=== PATIENT | male | born 1955 | race Caucasian/White ===

== ENCOUNTER → 2016-07-16 | Outpatient (CLI) | payer BC ==
--- NOTE | 2016-07-16 13:51 | CONS ---
DATE OF CONSULTATION: 07/16/2016 CONSULTATION/NEW PATIENT EVALUATION: A 60-year-old gentleman who has been evaluated in the Sleep Center for possible obstructive sleep apnea-hypopnea syndrome. SLEEP SCHEDULE: Patient's usual sleep schedule is from 10 p.m. to 6 a.m. FALLING ASLEEP: No problem with falling asleep, no TV in bedroom. DURING SLEEP: Patient sleeps in different positions. He usually on the side. According to his , he snores and has episodes of stopped breathing during sleep. He wakes up from sleep up to 4 times with 2 episodes of nocturia. He has episodes of gasping for air, dry mouth and heartburn. DURING THE DAY/WAKE EVALUATION: In the morning he wakes up tired, worrying about his sleep. [place] Sleepiness Scale is 8. He takes nap at 2 p.m. No history of hypnagogic hallucinations, sleep paralysis or cataplexy. PAST MEDICAL HISTORY: Positive for hyperlipidemia. MEDICATIONS: Simvastatin. PAST SURGICAL HISTORY: None. SOCIAL HISTORY: Negative for smoking and basically negative using alcohol. REVIEW OF SYSTEMS: Awakenings from sleep. Sometimes sleepiness during the day. FAMILY HISTORY: Hyperlipidemia, asthma, snoring, diabetes. During physical exam, a 60-year-old gentleman without distress. BP 128/91, HR 97, RR 16. Height 5, 11. Weight 245. BMI 34.1. Neck 17-1/2 inches in circumference. Temp is 98.1. Oxygen saturation at room air 94%. Oropharynx extremely low position of soft palate. Slight restriction of nasal breathing. ABDOMEN: Obese. EXTREMITIES: No edema. IMPRESSION: 1. Snoring, witnessed episodes of stopped breathing during the sleep, extremely low position of soft palate, multiple awakenings from sleep with nocturia, dry mouth, sleepiness during the day. Patient takes naps, obstructive sleep apnea-hypopnea syndrome. 2. Obesity. 3. Hyperlipidemia. 4. Sleepiness during the day. PLAN: 1. Home sleep apnea test for evaluation of patient's breathing during the sleep. 2. CPAP/BiPAP titration if sleep study confirms obstructive sleep apnea-hypopnea syndrome. 3. Preferable position during sleep on the side. 4. No driving if patient feels any sleepiness. Patient is aware of civil and criminal liability for unsafe driving. 5. I will see patient for followup visit to explain results of the testing and following plan. Sincerely, George Jose MD, PhD, FAASM. Diplomat of [place] [employer], Sleep Medicine Board by [place] [employer] [place] [employer] Supervisor [employer] of [facility] [place]
== END | disposition home or self-care (01) ==
LOC: SLEEP 11:18
PROVIDERS: ATTEND Internal Medicine
DX: G47.33 Obstructive sleep apnea (adult) (pediatric) (principal); E78.5 Hyperlipidemia, unspecified; E66.9 Obesity, unspecified; Z68.34 Body mass index [BMI] 34.0-34.9, adult; Z79.899 Other long term (current) drug therapy
CPT/HCPCS: 99211

== ENCOUNTER → 2016-09-24 | Outpatient (CLI) | payer BC ==
--- NOTE | 2016-09-24 20:29 | PN ---
DATE OF SERVICE: 09/24/2016 This patient is a 61-year-old gentleman who has been followed in the sleep center for treatment of obstructive sleep apnea-hypopnea syndrome. Recently patient had a home sleep apnea test and CPAP titration in the office, and I discussed the results of his sleep studies with the patient in detail. Home sleep study showed severe obstructive sleep apnea-hypopnea syndrome. Titration showed normalization of breathing at the pressure 14 cm of water. At that pressure apnea-hypopnea index was reduced to 1.2. Patient was started on treatment with CPAP. He brought his CPAP unit with him. I checked the CPAP machine. CPAP pressure is 14 cm of water. Usage is 100% of the time for more than 4 hours; average 7.4 hours. Leak is 38 L/minute, but patient sleeps well with the machine and feels better during the day. Apnea-hypopnea index from the machine reading is only 1.3. [place] Sleepiness Scale today is 4. MEDICATIONS: 1. Simvastatin. 2. Aspirin. PHYSICAL EXAMINATION: Patient is in no distress. VITAL SIGNS: BP 100/64, HR 74, RR 16. Weight 252. Temperature 97.6. Oxygen saturation at room air 94%. HEENT: DIEGO, EOMI. Evaluation of oropharynx showed tongue protrudes midline; extremely low position of soft palate. NECK: Supple. No JVD. Thyroid is not palpable. LUNGS: Clear to percussion and to auscultation. Good air exchange. No wheezing or rhonchi. HEART: S1, S2 regular. No murmurs, gallops or rubs. ABDOMEN: Obese. EXTREMITIES: No clubbing or cyanosis. CUSTOMER RELATIONS COORDINATOR: Awake, alert, and oriented x3. Cranial nerves 2 to 7 intact. There is no fasciculation or atrophy noted. No focal deficits observed. IMPRESSION: 1. Extremely severe obstructive sleep apnea-hypopnea syndrome. Apnea-hypopnea index was 59.8 with oxygen desaturation to 70% by results of home sleep test, fully controlled with CPAP at 14 cm of water. Patient has demonstrated 100% compliance with treatment and is benefitting from treatment. 2. Obesity. 3. Hyperlipidemia. 4. Some periodic limb movements have been documented during the sleep study. No problems with leg movements at night. Patient sleeps well. PLAN: 1. Continue treatment with CPAP every night. 2. Losing weight. 3. Sleep hygiene with regular time in bed for at least 8 hours. 4. No driving if feeling any sleepiness. 5. Follow-up visit in 10 months or earlier if patient has any problems. Thank you very much for allowing me to participate in the management your patient. Sincerely, George Jose MD, PhD, FAASM. Diplomat of [place] [employer], Sleep Medicine Board by [place] [employer], [place] [employer]
== END | disposition home or self-care (01) ==
LOC: SLEEP 16:05
PROVIDERS: ATTEND Internal Medicine
DX: G47.33 Obstructive sleep apnea (adult) (pediatric) (principal); E66.9 Obesity, unspecified; E78.5 Hyperlipidemia, unspecified; Z99.89 Dependence on other enabling machines and devices; Z79.82 Long term (current) use of aspirin; Z79.899 Other long term (current) drug therapy

== ENCOUNTER → 2017-10-21 | Outpatient (CLI) | payer BC ==
--- NOTE | 2017-10-21 17:29 | SFUN ---
SLEEP CENTER FOLLOW UP NOTE DATE OF SERVICE: 10/21/2017. HISTORY: A 62-year-old gentleman, has been followed in Sleep Center for treatment of severe obstructive sleep apnea-hypopnea syndrome; apnea-hypopnea index 59.8 with oxygen saturation of 70%. Patient successfully continued to use his CPAP equipment every night for the whole night without any significant problems related to mask pressure or humidification. [place] Sleepiness Scale today is 5. No snoring with the machine. I checked his CPAP unit. Usage is 100% of the time, more than 4 hours every 6.3 hours. Pressure is 14 cm of water. Apnea-hypopnea index only 1.4. Quite significant leak, although 48 L/minute. Patient thinks this is related to sometimes he is moving at night and moves his mask. MEDICATIONS: Aspirin, simvastatin. PHYSICAL EXAM: Patient in no distress. BP 113/68, HR 71, RR 14, height 5 feet 10 inches, weight 229.4, BMI 32.8. Oxygen saturation room air 93%. HEENT: PERRLA, EOMI, evaluation of oropharynx showed tongue protrudes midline. Low position of soft palate. NECK: Supple, no JVD. Thyroid is not palpable. LUNGS: Clear to percussion and to auscultation. Good air exchange. No wheezing or rhonchi. HEART: S1, S2 regular. No murmurs, gallops, or rubs. ABDOMEN: Slightly obese, soft and nontender. Bowel sounds are present. No organomegaly appreciated. EXTREMITIES: No clubbing or cyanosis. SPOOLER: Awake, alert, and oriented X3. Cranial nerves 2 to 7 intact. There is no fasciculation or atrophy. noted. No focal deficits observed. IMPRESSION: 1. Severe obstructive sleep apnea-hypopnea syndrome, on control with CPAP. The patient demonstrated 100% compliance with treatment, benefitting from treatment. 2. Mild obesity. BMI 32.8. Patient lost around 20 pounds since last visit. 3. Hyperlipidemia. 4. History of some periodic limb movements. No problems at the present time. PLAN: 1. Patient will continue to use CPAP equipment every night. 2. Continue losing weight. 3. Sleep hygiene with regular time in bed for at least 8 hours. 4. No driving if feeling sleepiness. 5. Prescription for all necessary CPAP supplies including mask, tube, filters. 6. Followup visit in 1 year or earlier if patient has any problems. Thank you very much for allowing me to participate in the management of your patient. Sincerely, George Jose MD, PhD, FAASM Diplomat of [place] [employer] Special[employer] [place] Board of Internal Medicine Clerical Proofreader of [facility] [place] DEEPAK / EMMY: [id number] /
== END | disposition home or self-care (01) ==
LOC: SLEEP 16:04
PROVIDERS: ATTEND Internal Medicine
DX: G47.33 Obstructive sleep apnea (adult) (pediatric) (principal); E66.9 Obesity, unspecified; E78.5 Hyperlipidemia, unspecified; Z99.89 Dependence on other enabling machines and devices; Z68.32 Body mass index [BMI] 32.0-32.9, adult

== ENCOUNTER → 2018-11-10 | Outpatient (CLI) | payer BC ==
--- NOTE | 2018-11-10 20:07 | PN ---
PROGRESS NOTE DATE OF SERVICE: 11/10/2018 63-year-old gentleman has been followed in Sleep Center for treatment of obstructive sleep apnea-hypopnea syndrome. The patient successfully continues to use his CPAP equipment every night for the whole night but recently developed some leak from the nasal pillow mask . The patient is using a chinstrap to prevent mouth leak. [place] Sleepiness Scale is 6. I checked his CPAP unit. CPAP pressure is 14 cm of water. The patient is using equipment every night and 23 out of 30 nights more than 4 hours with average usage 5.0 hours. Leak is 50 L/minute which is high. Apnea-hypopnea index only 1.8, which is totally normal. Reading for the last year showed sleep 44 L/minute, for the 6 months showed 43 L/minutes. MEDICATIONS: Simvastatin, aspirin. PHYSICAL EXAM: Patient in no distress. BP 101/62, HR 65, RR 14, height 5 feet 10 inches, weight 232.2 pounds. Body Mass index 33.2, temperature 97.1. Oxygen saturation at room air 97%. Oropharynx: Low position of soft palate. Abdomen slightly obese. Neck Supple, no JVD. Thyroid is not palpable. LUNGS Clear to percussion and to auscultation. Good air exchange. No wheezing or rhonchi. HEART S1, S2 regular. No murmurs, gallops, or rubs. ABDOMEN: Slightly obese. Soft and nontender. Bowel sounds are present. No organomegaly appreciated. EXTREMITIES: No clubbing or cyanosis. CREW BOSS Awake, alert, and oriented X3. Cranial nerves 2 to 7 intact. There is no fasciculation or atrophy. noted. No focal deficits observed. IMPRESSION: 1. Obstructive sleep apnea-hypopnea syndrome. Patient demonstrated great compliance with treatment benefitting from treatment. Normal respiration on CPAP but high leak by machine reading. 2. Mild obesity BMI 33.2. 3. Hyperlipidemia. 4. The patient increased his weight around 3 pounds since last visit. 5. History of some periodic limb movements in the in the past. No problem with the leg movements at the present time. PLAN: 1. Patient will continue to use CPAP equipment every night for the whole night. 2. We will consider to change the patient nasal pillow mask from AirFit P10 to Cabrera FX same size large. 3. Losing weight. 4. Sleep hygiene with regular time in bed for 7.5 to 8 hours. 5. No driving if feeling sleepiness. 6. I will maintain all necessary prescriptions for CPAP supplies including nasal pillow, mask, tube, filters. 7. Follow up visit in 1 year or earlier if patient has any problems. Thank you very much for allowing me to participate in the management of your patient. Sincerely, George Jose MD, PhD, FAASM Diplomat of [employer] Board [employer] Specialties [employer] Board of Internal Medicine Heel Room Supervisor of [facility] [place] MMODL / BRYANTN: [id number] /
== END ==
LOC: SLEEP 15:57
PROVIDERS: ATTEND Internal Medicine
DX: G47.33 Obstructive sleep apnea (adult) (pediatric) (principal); E66.9 Obesity, unspecified; E78.5 Hyperlipidemia, unspecified; Z68.33 Body mass index [BMI] 33.0-33.9, adult; Z99.89 Dependence on other enabling machines and devices; Z79.899 Other long term (current) drug therapy; Z79.82 Long term (current) use of aspirin

== ENCOUNTER → 2020-10-17 | Outpatient (CLI) | payer MEDICARE, BC ==
--- NOTE | 2020-10-17 20:56 | SFUN ---
SLEEP CENTER FOLLOW UP NOTE DATE OF SERVICE: 10/17/2020 This 65-year-old gentleman has been followed in Sleep Center for treatment of obstructive sleep apnea-hypopnea syndrome. I did not see the patient for about 2 years. He continues to use his CPAP equipment every night for the whole night. Sometimes he feels that there is a leak from the mask, but at the same time he feels comfortable with sleep. [place] Sleepiness Scale today is 8. I checked the patient's CPAP unit. Pressure is 14 cm of water. Usage is 100% of nights and 28/30 nights for more than 4 hours. Leak is quite high at 41 L/minute, but at the same time, apnea-hypopnea index is totally normal; it is only 2.1. MEDICATIONS: Metformin, simvastatin 40 mg once a day. PHYSICAL EXAMINATION: GENERAL: A gentleman without distress. VITAL SIGNS: BP 139/73, HR 64, RR 18, height 5 feet 11 inches, weight 238.4, temperature 97.6, oxygen saturation at room air 96%. BMI 33.1. HEENT: PERRLA, EOMI. Evaluation of oropharynx showed tongue protrudes midline. Extremely low position of soft palate. Mallampati IV. NECK: Supple. No JVD. Thyroid is not palpable. LUNGS: Clear to percussion and to auscultation. Good air exchange. No wheezing or rhonchi. HEART: S1, S2 regular. No murmurs, gallops or rubs. ABDOMEN: Slightly obese. EXTREMITIES: No clubbing or cyanosis. FILM EDITOR: Awake, alert, and oriented X3. Cranial nerves 2 to 7 intact. There is no fasciculation or atrophy. noted. No focal deficits observed. IMPRESSION: 1. Obstructive sleep apnea-hypopnea syndrome. Patient demonstrated 100% compliance with treatment, benefitting from treatment. Slightly high leak from the mask, but it does not influence the apnea-hypopnea index. 2. Obesity. 3. Hyperlipidemia. 4. History of periodic limb movements. No significant complaints related to any leg movements at night at the present time. PLAN: 1. Patient will continue to use PAP equipment every night for the whole night. 2. Sleep hygiene with regular time in bed for at least 7-1/2 to 8 hours. 3. Precautions related to driving. No driving if feeling sleepiness. 4. I will maintain all necessary prescription for PAP supplies including mask, tube, filters. 5. Watching weight. 6. Follow-up visit in 6 months or earlier if patient has any problems. Thank you very much for allowing me to participate in the management of your patient. Sincerely, George Jose MD, PhD, FAASM Diplomat of [place] [employer] Specialties [place] Board of Internal Medicine Checker In of [facility] [place] MMODL / BRYANTN: [id number] /
== END ==
LOC: SLEEP 15:05
PROVIDERS: ATTEND Internal Medicine
DX: G47.33 Obstructive sleep apnea (adult) (pediatric) (principal); E66.9 Obesity, unspecified; E78.5 Hyperlipidemia, unspecified; Z86.69 Personal history of other diseases of the nervous system and sense organs; Z68.33 Body mass index [BMI] 33.0-33.9, adult

== ENCOUNTER → 2022-09-30 | Outpatient (CLI) | payer MEDICARE ==
--- NOTE | 2022-09-30 16:33 | P.PN ---
Subjective DATE: 09/30/2022 FOLLOW UP VISIT. Patient with obstructive sleep apnea hypopnea syndrome return to sleep center for follow-up visit. Information from previous visit have been reviewed. Patient is using PAP equipment every night for the whole night, getting PAP supplies in time. The patient does not have significant problems with the mask, PAP unit and humidification. [place] sleepiness scale is 7, which is normal. I checked information from PAP unit. PAP unit pressure 14 cm H2O. Usage is 100 % for more then 4 hours, average 5.9 hours per night. Leak is 38 l/m, which is in increased range. Apnea Hypopnea Index is 1.7, which is normal. MEDICATIONS:1. Atorvastatin 80 mg once a day 2. Lisinopril 2.5 mg once a day 3. Farxiga 10 mg once a day 4. Aspirin 81 mg once a day During physical exam: GENERAL: A pleasant patient without any distress. VITAL SIGNS: BP 107/63, HR 71, RR 16, weight 234.2, temperature 98.1, oxygen saturation at room air 95 % . HEENT: PERRLA, EOMI.low position of soft palate, Mallapati 4 . NECK: Supple. No JVD. LUNGS: Clear to percussion and to auscultation. Good air exchange. No wheezing or rhonchi. HEART: S1, S2 regular. ABDOMEN: Soft and nontender.[] EXTREMITIES: No clubbing or cyanosis. SINGLE STROKE PREFORMER: Awake, alert, and oriented x3. No focal deficit. Impressions: 1. Obstructive sleep apnea-hypopnea syndrome. Patient demonstrated great compliance with treatment, benefiting from treatment. 2. Mild obesity, BMI 33.1. 3. Diabetes mellitus. 4. History of periodic limb movements, no complaints. 5. Hyperlipidemia. Plan: 1. Continue using PAP equipment every night for the whole night. 2. To change air filter at least 1-2 times per month. 3. PAP unit should stay lower then position of the head. 4. Advised patient to remove all remaining water from humidifier canister daily and make it dry after each usage. Refill canister with fresh distilled water before each usage. 5. Sleep hygiene with regular time in bed for at least 8 hours. 6. Precautions related to driving. No driving if feel any sleepiness. 7. I will maintain prescription for PAP supplies including mask, tube, filters. 8. Watching and losing weight. 9. Follow up visit in 6 months or earlier if patient has any problems. Thank you very much for allowing me to participate in the management of your patient. George Jose MD, PhD, FAASM. Diplomat of [place] Board [employer] Sleep Medicine, Sleep Medicine Board by [place] Board of Internal Medicine Vegetable Grader of [facility] [place]
== END | disposition home or self-care (01) ==
LOC: SLEEP 15:04
PROVIDERS: ATTEND Internal Medicine
DX: G47.33 Obstructive sleep apnea (adult) (pediatric) (principal); E11.9 Type 2 diabetes mellitus without complications; E66.9 Obesity, unspecified; Z68.33 Body mass index [BMI] 33.0-33.9, adult; E78.5 Hyperlipidemia, unspecified; Z99.89 Dependence on other enabling machines and devices
CPT/HCPCS: 99212

== ENCOUNTER → 2023-09-23 | Outpatient (CLI) | payer MEDICARE ==
--- NOTE | 2023-09-23 15:50 | P.PN ---
Subjective DATE: 09/23/2023 FOLLOW UP VISIT. Patient with obstructive sleep apnea hypopnea syndrome return to sleep center for follow-up visit. Information from previous visit have been reviewed. Patient is using PAP equipment every night for the whole night, getting PAP supplies in time. The patient does not have significant problems with the mask, PAP unit and humidification. [place] sleepiness scale is 6, which is normal. I checked information from PAP unit. PAP unit pressure 14 cm H2O. Usage is 100% for more then 4 hours, average 6.5 hours per night. Leak is slightly increased to 32 l/m. Apnea Hypopnea Index is 1.6, which is normal. MEDICATIONS:1. Atorvastatin 80 mg once a day 2. Ezetimibe 10 mg once a day 3. Lisinopril 2.5 mg once a day 4. Farxciga 10 mg once a day 5. Aspirin 81 mg once a day During physical exam: GENERAL: A pleasant patient without any distress. VITAL SIGNS: Please see below, weight 241.4 pounds. HEENT: PERRLA, EOMI.low position of soft palate, Mallapati 4 . NECK: Supple. No JVD. LUNGS: Clear to percussion and to auscultation. Good air exchange. No wheezing or rhonchi. HEART: S1, S2 regular. ABDOMEN: Soft and nontender. Slightly obese EXTREMITIES: No clubbing or cyanosis. TAX INTERN: Awake, alert, and oriented x3. No focal deficit. Impressions: 1. Obstructive sleep apnea-hypopnea syndrome. Patient demonstrated great compliance with treatment, benefiting from treatment. 2. Obesity, patient increased weight on 7 pounds comparing with the previous visit, BMI 34.0. 3. Diabetes mellitus. 4. Hyperlipidemia. 5. History of periodic limb movements, no complaints. Plan: 1. Continue using PAP equipment every night for the whole night. 2. To change air filter at least 1-2 times per month. 3. PAP unit should stay lower then position of the head. 4. Advised patient to remove all remaining water from humidifier canister daily and make it dry after each usage. Refill canister with fresh distilled water before each usage. 5. Sleep hygiene with regular time in bed for at least 8 hours. 6. Precautions related to driving. No driving if feel any sleepiness. 7. I will maintain prescription for PAP supplies including mask, tube, filters. 8. Follow up visit in 6 months or earlier if patient has any problems. 9. Watching and losing weight. Thank you very much for allowing me to participate in the management of your patient. George Jose MD, PhD, FAASM. Diplomat of [place] Board of Sleep Medicine, Sleep Medicine Board by [employer] Board of Internal Medicine [place] Tribunal Member of [facility] [place] Objective - Vital Signs Vital signs: Vital Signs Temp 97.9 F 09/23/23 15:37 Pulse 66 09/23/23 15:37 Resp 16 09/23/23 15:37 BP 105/68 09/23/23 15:37 Pulse Ox 95 09/23/23 15:37 FiO2 Intake & Output 09/22/23 09/23/23 09/23/23 18:59 06:59 18:59 Weight 109.316 kg
[2023-09-23 16:00] VITALS: BP 105/68; PULSE 66; RESP 16; TEMP 97.9
== END ==
LOC: 3 N SLEEP 14:52
PROVIDERS: ATTEND Internal Medicine
DX: G47.33 Obstructive sleep apnea (adult) (pediatric) (principal); E66.9 Obesity, unspecified; E11.9 Type 2 diabetes mellitus without complications; E78.5 Hyperlipidemia, unspecified; Z99.89 Dependence on other enabling machines and devices; Z86.69 Personal history of other diseases of the nervous system and sense organs; Z68.34 Body mass index [BMI] 34.0-34.9, adult
CPT/HCPCS: 99212

== ENCOUNTER → 2024-06-01 | Outpatient (CLI) | payer MEDICARE ==
[2024-06-01 16:53] VITALS: BP 130/76; PULSE 63; RESP 16; TEMP 97.4
--- NOTE | 2024-06-01 17:17 | P.PROGSL ---
Subjective DATE: 06/01/2024 FOLLOW UP VISIT. Patient with obstructive sleep apnea hypopnea syndrome return to sleep center for follow-up visit. Information from previous visit have been reviewed. Patient is using PAP equipment every night for the whole night, getting PAP supplies in time. The patient does not have significant problems with the mask, PAP unit and humidification. [place] sleepiness scale is 6, which is normal. I checked information from PAP unit. PAP unit pressure 14 cm H2O. Usage is 100% for more then 4 hours, average 6.5 hours per night. Leak is 22 l/m, which is in acceptable range. Apnea Hypopnea Index is 2.0, which is normal. MEDICATIONS have been reviewed, please see below. During physical exam: GENERAL: A pleasant patient without any distress. VITAL SIGNS: Please see below, weight is 242.8 lbs. HEENT: PERRLA, EOMI.low position of soft palate, Mallapati 4 . NECK: Supple. No JVD. LUNGS: Clear to percussion and to auscultation. Good air exchange. No wheezing or rhonchi. HEART: S1, S2 regular. ABDOMEN: Soft and nontender.[] EXTREMITIES: No clubbing or cyanosis. MANAGER OF SOFTWARE DEVELOPMENT: Awake, alert, and oriented x3. No focal deficit. Impressions: 1. Obstructive sleep apnea-hypopnea syndrome. Patient demonstrated great compliance with treatment, benefiting from treatment. 2. Obesity, BMI 34.8. 3. Diabetes mellitus, recent A1c according to patient 7.0. 4. History of periodic limb movements, no complaints at the present time. 5. Hyperlipidemia. Plan: 1. Continue using PAP equipment every night for the whole night. 2. Sleep hygiene with regular time in bed for at least 7.5-8 hours 3. PAP unit should stay lower then position of the head. 4. Advised patient to remove all remaining water from humidifier canister daily and make it dry after each usage. Refill canister with fresh distilled water before each usage. 5. Watching and losing weight. 6. Precautions related to driving. No driving if feel any sleepiness. 7. I will maintain prescription for PAP supplies including mask, tube, filters. 8. Follow up visit in 8 months or earlier if patient has any problems. Thank you very much for allowing me to participate in the management of your patient. George Jose MD, PhD, FAASM. Diplomat of [place] [employer] Sleep Medicine, Sleep Medicine Board by [place] [employer] of Internal Medicine Pie Filling Mixer of [facility] [place] Objective - Vital Signs Vital Signs: Vital Signs Temp 97.4 F L 06/01/24 16:50 Pulse 63 06/01/24 16:50 Resp 16 06/01/24 16:50 BP 130/76 06/01/24 16:50 Pulse Ox 95 06/01/24 16:50 FiO2 Intake & Output 05/31/24 06/01/24 06/01/24 18:59 06:59 18:59 Weight 109.996 kg Home Medications: Home Medications Medication Instructions Recorded Confirmed Type Aspirin [Adult Low Dose Aspirin EC] 81 mg PO DAILY 03/04/17 06/01/24 History Simvastatin 40 mg PO DAILY 03/04/17 03/04/17 History Atorvastatin [Lipitor] 80 mg PO DAILY 09/23/23 06/01/24 History Dapagliflozin Propanediol [Farxiga] 10 mg PO DAILY 09/23/23 06/01/24 History Ezetimibe [Zetia] 10 mg PO DAILY 09/23/23 06/01/24 History lisinopriL [Zestril] 2.5 mg PO DAILY 09/23/23 06/01/24 History
== END ==
LOC: 3 N SLEEP 15:44
PROVIDERS: ATTEND Internal Medicine
DX: G47.33 Obstructive sleep apnea (adult) (pediatric) (principal); E66.9 Obesity, unspecified; E11.9 Type 2 diabetes mellitus without complications; E78.5 Hyperlipidemia, unspecified; Z68.34 Body mass index [BMI] 34.0-34.9, adult; Z86.718 Personal history of other venous thrombosis and embolism; Z99.89 Dependence on other enabling machines and devices
CPT/HCPCS: 99212

== ENCOUNTER → 2024-11-21 | Outpatient (CLI) | payer MEDICARE ==
[2024-11-21 15:02] LABS: Basophils # (A) 0.05 X 10*3/uL (0.00-0.10); Basophils % (A) 0.9 %; Eosinophils # (A) 0.17 X 10*3/uL (0.04-0.35); Eosinophils % (A) 3.0 %; HCT 44.2 % (39.6-50.0); HGB 14.2 g/dL (13.0-17.0); Immature Grans, Automated 0.20 %; Lymphocytes # (A) 1.66 X 10*3/uL (0.90-5.00); Lymphocytes % (A) 29.0 %; MCH 29.8 pg (27.0-32.0); MCHC 32.1 g/dL (32.0-37.0); MCV 92.7 FL (80.0-97.0); Monocytes # (A) 0.67 X 10*3/uL (0.20-1.00); Monocytes % (A) 11.7 %; NRBC Per 100 WBC 0 X 10*3/uL (0.00-0.01); Neutrophils # (A) 3.17 X 10*3/uL (1.80-7.70); Neutrophils % (A) 55.2 %; Platelet Count 276 X 10*3/uL (140-440); RBC 4.77 X 10*6/uL (4.40-5.60); RDW 12.5 % (11.5-14.5); WBC 5.73 X 10*3/uL (4.50-10.00)
[2024-11-21 15:14] LABS: Anion Gap 14.90 mmol/L (4.00-12.00); BUN/Creat Ratio 21.93 Ratio (12.00-20.00); Blood Urea Nitrogen 32.9 mg/dL (9.0-27.0); Carbon Dioxide 22.1 mmol/L (21.6-31.8); Chloride 108 mmol/L (96-109); Glucose 131 mg/dL (70-110); Potassium 4.2 mmol/L (3.5-5.5); Sodium 145 mmol/L (135-145)
[2024-11-21 15:15] LABS: Calcium 9.3 mg/dL (8.7-10.3)
[2024-11-21 15:21] LABS: Bilirubin,Urine Negative (Negative); Blood,Urine Negative (Negative); Color,Urine Yellow (Yellow); Ketones,Urine Negative (Negative); Nitrite,Urine Negative (Negative); PH, Urine 5.5; Specific Gravity,Urine 1.011 (1.001-1.030); Urobilinogen,Urine 0.2 E.U./DL
== END | disposition home or self-care (01) ==
LOC: LABPAT 07:54
PROVIDERS: ATTEND Urology
DX: Z01.812 Encounter for preprocedural laboratory examination (principal); N40.1 Benign prostatic hyperplasia with lower urinary tract symptoms
CPT/HCPCS: 80048; 81003; 85025; 86850; 86900; 86901; 87086

== ENCOUNTER 2024-11-23 09:57 | Day surgery (SDC) | payer MEDICARE ==
[2024-11-20 10:15] VITALS: BMI 32.3
--- NOTE | 2024-11-21 07:45 | P.HPIHPCON ---
History of Present Illness H&P Date: 11/21/24 Chief Complaint: Urinary retention, BPH This is a 69-year-old male with history of urinary retention, despite medical therapy. On CT his prostate measured greater than 100 g, on cystoscopy the prostate was occlusive. Discussed with him the option of a robotic simple prostatectomy versus HoLEP. Risk and benefit of each approach were discussed. He agreed to proceed with a robotic simple prostatectomy. He is aware of the risk which include but not limited to bleeding, infection, urinary incontinence, retrograde ejaculation. Discussed the risk of injury to nearby organs. Discussed with him the potential of persistent retention even with a robotic simple. He understood all risk and agreed to proceed Consent for Procedure: I have explained the operation/procedure to the patient, including the risks, benefits, side effects, alternative therapies (including not receiving the proposed treatment or service), the likelihood of the patient achieving his/her goals, and potential recuperation problems for the procedure/sedation/analgesia, as well as any blood products, if indicated. I also explained to the patient the risks, benefits and side effects of the alternatives, as well as the risks related to not receiving the proposed procedure, care, treatment, or services. Past Medical History Past Medical History: Diabetes Mellitus, Hyperlipidemia, Sleep Apnea/CPAP/BIPAP Additional Past Medical History / Comment(s): Type II NIDDM. Uses CPAP History of Any Multi-Drug Resistant Organisms: None Reported Past Surgical History: Unable to Obtain Additional Past Surgical History / Comment(s): Colonoscopy Past Anesthesia/Blood Transfusion Reactions: No Reported Reaction Additional Past Anesthesia/Blood Transfusion Reaction / Comment(s): No hx of blood transfusion to date. Smoking Status: Never smoker - Past Family History Father Family Medical History: No Reported History Medications and Allergies Home Medications Medication Instructions Recorded Confirmed Type Aspirin [Adult Low Dose Aspirin EC] 81 mg PO DAILY 03/04/17 11/20/24 History Simvastatin 40 mg PO DAILY 03/04/17 11/20/24 History Atorvastatin [Lipitor] 80 mg PO DAILY 09/23/23 11/20/24 History Dapagliflozin Propanediol [Farxiga] 10 mg PO QAM 09/23/23 11/20/24 History Ezetimibe [Zetia] 10 mg PO DAILY 09/23/23 11/20/24 History lisinopriL [Zestril] 2.5 mg PO QAM 09/23/23 11/20/24 History Allergies Allergy/AdvReac Type Severity Reaction Status Date / Time No Known Allergies Allergy Verified 11/20/24 10:01 Surgical - Exam - General no distress, no pain - Eyes normal ocular movement, no pale - ENT normal nares, normal mucosa - Respiratory normal expansion, normal respiratory effort - Abdomen Abdomen: soft, non tender - Psychiatric oriented to time, oriented to person, oriented to place Assessment and Plan Assessment: OR for robotic simple prostatectomy
[~2024-11-23 09:57] MED LIST: HYDROmorphone 0.5 MG/0.5 ML SYRINGE IVP PRN; LIDOCAINE 1% (10MG/ML) FOR IV START INTRADERMA PRN
[2024-11-23] MEDS: LACTATED RINGERS 1,000 ML IV SCH (10:50)
[2024-11-23 10:52] LABS: Glucose,Whole Blood 125 mg/dL (70-110)
[2024-11-23] MEDS: DEXAMETHASONE SOD PHOSPHATE 4 MG/ML 1 ML VIAL IV ONE (11:06)
[2024-11-23] MEDS: ONDANSETRON 4 MG/2 ML VIAL IVP ONE (11:07)
[2024-11-23] MEDS: IV FLUID CONTINUATION 1,000 ML IV ONE ×2 (11:15)
[2024-11-23] MEDS: fentaNYL (PF) 50 MCG/ML 2 ML AMP IVP PRN (11:24)
[2024-11-23] MEDS: MIDAZOLAM 2 MG/2 ML VIAL IV ONE (11:24)
[2024-11-23] MEDS: HEPARIN SODIUM,PORCINE 5,000 UNIT/ML 1 ML VIAL SQ PRN (11:34)
[2024-11-23] MEDS ORDERED: fentaNYL (PF) 50 MCG/ML 2 ML AMP ONE (11:55)
[2024-11-23] MEDS ORDERED: ACETAMINOPHEN IV (For NPO) 1,000 MG/100 ML VIAL ONE (11:55)
[2024-11-23] MEDS ORDERED: PROPOFOL 10 MG/ML 20 ML VIAL IV ONE (11:55)
[2024-11-23] MEDS ORDERED: GLYCOPYRROLATE 0.2 MG/ML 2 ML VIAL ONE (11:55)
[2024-11-23] MEDS ORDERED: SODIUM CHLORIDE 0.9% (PF) 10 ML VIAL ONE (11:55)
[2024-11-23] MEDS ORDERED: ROCURONIUM 10 MG/ML (5 ML VIAL) IV ONE (11:55)
[2024-11-23] MEDS ORDERED: HYDROmorphone (PF) 1 MG/ML ONE (11:55)
[2024-11-23] MEDS ORDERED: DEXAMETHASONE SOD PHOSPHATE 4 MG/ML 1 ML VIAL ONE (11:55)
[2024-11-23] MEDS ORDERED: SUCCINYLCHOLINE CHLORIDE 200 MG/10 ML VIAL IV ONE (11:55)
[2024-11-23] MEDS ORDERED: ROPIVACAINE 5 MG/ML 30 ML VIAL ONE (11:55)
[2024-11-23] MEDS ORDERED: NEOSTIGMINE 1 MG/ML 10 ML VIAL ONE (11:55)
[2024-11-23] MEDS: BUPIVACAINE (PF) 0.25% 30 ML VIAL SQ ONE ×2 (12:29→14:46)
--- NOTE | 2024-11-23 13:07 | P.ANPRN ---
Procedure Note - Anesthesia - Nerve Block Performed Bilateral Erector Spinae Single Time Out Performed: Yes (1124) Date of Procedure: 11/23/24 Procedure Start Time: : Procedure Stop Time: :32 Location of Patient: PreOp Indication: Acute Post-Operative Pain, Requested by Surgeon Specifically requested for management of pain by : Oren Jenkins Sedation Type: Sedate with meaningful contact maintained Preparation: Sterile Prep Position: Sitting Catheter: None Needle Types: Pajunk Needle Gauge: 21 Ultrasound used to visualize needle placement: Yes Ultrasound used to observe medication spread: Yes Injectate: 0.5% Ropivacaine (see comment for volume) (15cc+10cc nacl pf+decadron 4mg each side) Blood Aspirated: No Pain Paresthesia on Injection Noted: No Resistance on Injection: Normal Image Stored and Saved: Yes Events: Uneventful and Well Tolerated
[2024-11-23] MEDS ORDERED: ONDANSETRON 4 MG/2 ML VIAL IVP PRN (14:59)
[2024-11-23] MEDS ORDERED: HYDROmorphone 1 MG/ML 1 ML SYRINGE IVP PRN (14:59)
[2024-11-23] MEDS ORDERED: HYDROcodone/APAP 5-325MG 1 EACH TAB PO PRN (15:02)
--- NOTE | 2024-11-23 15:06 | P.OP ---
Date of Procedure: 11/23/24 Preoperative Diagnosis: BPH Postoperative Diagnosis: Same Procedure(s) Performed: Robotic simple prostatectomy Implants: None Anesthesia: ISIDROA Surgeon: Oren Jenkins Estimated Blood Loss (ml): 75 Pathology: other (Prostate adenoma) Condition: stable Disposition: PACU Indications for Procedure: This is a 69-year-old male with history of urinary retention, despite medical therapy. On CT his prostate measured greater than 100 g, on cystoscopy the prostate was occlusive. Discussed with him the option of a robotic simple prostatectomy versus HoLEP. Risk and benefit of each approach were discussed. He agreed to proceed with a robotic simple prostatectomy. He is aware of the risk which include but not limited to bleeding, infection, urinary incontinence, retrograde ejaculation. Discussed the risk of injury to nearby organs. Discussed with him the potential of persistent retention even with a robotic simple. He understood all risk and agreed to proceed Description of Procedure: After preoperative antibiotics were started, the patient was taken to the operating room. Anesthesia was induced and the patient was placed in a supine position with adequate padding of the pressure points, shoulders, back, legs and arms. He was then prepped and draped in the standard fashion. A critical pause was performed using two patient identifiers. A 16F kenney catheter was placed to gravity drainage. A pneumoperitoneum was obtained using a Veress needle, after pneumoperitoneum was obtained a 8 mm camera port was placed. Under direct vision a 8mm robotic ports was placed lateral to each rectus slightly below the camera port. The left iliac fossa 8mm port was placed. The right sales operations assistant right iliac fossa 12mm port and right paramedian 5mm portwere placed. After the patient was placed in the trendelenberg position, the robot was then docked to the 8mm robotic ports and then each robotic arm and tower was checked in relation to the patient's legs and hands to avoid inadvertent compression. The peritoneal cavity was inspected. Adhesions were taken down along the left lower quadrant An inverted U-shaped incision began laterally to the left medial umbilical ligament and extended high across the midline to the right umbilical ligament. The limbs of the "U" extended to the level of the vasa on both sides. We next developed the preperitoneal space and the space of Retzius. Cautery was used to dissected the bladder away from the prostate, the incision was made in close proximity to the prostate, and incision was extended laterally and at this point the plane between the adenoma and the surgical capsule is identified. Both ureteral orifices were identified and neither was injured during the dissection . Of note there was intravesical extension of the prostate, with enlarged median lobe. The adenoma was dissected off of the capsule by combination of blunt dissection and minimum cautery. dissection was initially started along the anterior surface and posterior surface of adenoma, and this was carried laterally. The dissection was carried to the apex, at this point the urethral-prostatic junction was visualized and the prostate was transected at the junction. Prostate adenoma was placed in an endocatch bag . A 9and 9 inch 3-0 V-Lock suture was used to anastomose the urethra and bladder, starting at the 6:00 posterior position. Mucosa was secured in every stitch, to ensure a mucosa to mucosa anastomosis. The stitch was regularly cinched and the anastomosis tightened. . The 20 Fr Kenney catheter was advanced, the bladder filled, and the anastomosis was tested. Anastomsis was watertight at 150 mL. balloon was inflated to 10 mL The robot was undocked. specimen was extracted from the supraumbilical incision. The periumbilical fascia was closed with 1-0-PDS suture in figure of 8 fashion. All ports were closed with a subcuticular 4-0 monocryl and Dermabond. Sponge, instrument, and needle counts were correct at the end of the case x2. The patient tolerated the surgery well and without complication. He awoke without difficulty and was taken to the recovery room in stable condition
[2024-11-23 16:57] LABS: Glucose,Whole Blood 142 mg/dL (70-110)
[2024-11-23] MEDS: droPERidol 2.5 MG/ML VIAL IVP ONE (18:17)
[2024-11-23] MEDS: KETOROLAC 15 MG/ML 1 ML VIAL IVP SCH (19:00)
[2024-11-23 20:09] LABS: Glucose,Whole Blood 272 mg/dL (70-110)
[2024-11-23] MEDS: SODIUM CHLORIDE 0.9% 1,000 ML IV SCH (20:16)
[2024-11-23] MEDS: HEPARIN SODIUM,PORCINE 5,000 UNIT/ML 1 ML VIAL SQ SCH (23:43)
[2024-11-24 06:31] LABS: Glucose,Whole Blood 182 mg/dL (70-110)
[2024-11-24] MEDS: ATORVASTATIN 80 MG TAB PO SCH (08:46)
[2024-11-24] MEDS: DAPAGLIFLOZIN PROPANEDIOL 10 MG TABLET PO SCH (08:46)
[2024-11-24] MEDS: EZETIMIBE 10 MG TAB PO SCH (08:47)
[2024-11-24] MEDS ORDERED: NON FORMULARY DRUG (Simvastatin [Simvastatin] 40 MG Tablet) PO SCH (09:00)
[2024-11-24 09:09] VITALS: BP 105/61; RESP 18; TEMP 98.4
[2024-11-24 09:10] VITALS: PULSE 68
[2024-11-24 12:00] LABS: Glucose,Whole Blood 168 mg/dL (70-110)
--- NOTE | 2024-11-24 13:02 | P.DS ---
Providers Attending physician: Oren Jenkins MD Primary care physician: Mode Cheney [place] Hospital Course: This is a 69-year-old male with history of BPH. Underwent a robotic simple prostatectomy on November 23. Please see op note in November 23 for surgery details. Patient was admitted to the hospital postoperatively. He was discharged home on postop day #1, at time of discharge he was tolerating a diet, ambulating, pain was controlled Plan - Discharge Summary Discharge Rx Participant: No New Discharge Prescriptions: New Cephalexin [Keflex] 500 mg PO Q8HR #15 cap Ketorolac [Toradol] 10 mg PO Q6HR PRN #15 tab PRN Reason: Pain No Action Simvastatin 40 mg PO DAILY Aspirin [Adult Low Dose Aspirin EC] 81 mg PO DAILY lisinopriL [Zestril] 2.5 mg PO QAM Ezetimibe [Zetia] 10 mg PO DAILY Atorvastatin [Lipitor] 80 mg PO DAILY Dapagliflozin Propanediol [Farxiga] 10 mg PO QAM Discharge Medication List Aspirin [Adult Low Dose Aspirin EC] 81 mg PO DAILY 03/04/17 [History] Simvastatin 40 mg PO DAILY 03/04/17 [History] Atorvastatin [Lipitor] 80 mg PO DAILY 09/23/23 [History] Dapagliflozin Propanediol [Farxiga] 10 mg PO QAM 09/23/23 [History] Ezetimibe [Zetia] 10 mg PO DAILY 09/23/23 [History] lisinopriL [Zestril] 2.5 mg PO QAM 09/23/23 [History] Cephalexin [Keflex] 500 mg PO Q8HR #15 cap 11/23/24 [Rx] Ketorolac [Toradol] 10 mg PO Q6HR PRN #15 tab 11/23/24 [Rx]
== END 2024-11-24 13:38 | disposition home or self-care (01) ==
LOC: OR 09:57 → 4SSUR 15:43 → OR 11-24 13:38
PROVIDERS: ATTEND Urology
DX: N40.1 Benign prostatic hyperplasia with lower urinary tract symptoms (principal); R33.8 Other retention of urine; G89.18 Other acute postprocedural pain; G47.30 Sleep apnea, unspecified; E78.5 Hyperlipidemia, unspecified; E11.9 Type 2 diabetes mellitus without complications; Z79.82 Long term (current) use of aspirin; Z79.84 Long term (current) use of oral hypoglycemic drugs; Z79.899 Other long term (current) drug therapy
CPT/HCPCS: 55867; S2900; 64468

== ENCOUNTER 2024-12-03 11:25 | Inpatient (IN) | payer MEDICARE ==
--- NOTE | 2024-12-03 12:36 | ED ---
Fever HPI - General Chief Complaint: Fever Stated Complaint: chills Time Seen by Provider: 12/03/24 12:30 Source: patient, RN notes reviewed Mode of arrival: wheelchair Limitations: no limitations - History of Present Illness Initial Comments: 69-year-old male presenting for fever x 4 hours. States he had prostate surgery with Dr. Jenkins last week, has indwelling Barrios catheter. States he started Keflex this morning as he has a follow-up appointment with Dr. Jenkins tomorrow to take out Barrios catheter. States about 1.5 hours after taking the antibiotic he began to experience fever. States he has also had a mild cough for about a week, otherwise denies nasal congestion, sore throat, chest pain, abdominal pain, pain at the incision sites. Denies rectal pain. - Related Data Home Medications Medication Instructions Recorded Confirmed Aspirin [Adult Low Dose Aspirin EC] 81 mg PO DAILY 03/04/17 11/23/24 Simvastatin 40 mg PO DAILY 03/04/17 11/23/24 Atorvastatin [Lipitor] 80 mg PO DAILY 09/23/23 11/23/24 Dapagliflozin Propanediol [Farxiga] 10 mg PO QAM 09/23/23 11/23/24 Ezetimibe [Zetia] 10 mg PO DAILY 09/23/23 11/23/24 lisinopriL [Zestril] 2.5 mg PO QAM 09/23/23 11/23/24 Previous Rx's Medication Instructions Recorded Cephalexin [Keflex] 500 mg PO Q8HR #15 cap 11/23/24 Ketorolac [Toradol] 10 mg PO Q6HR PRN #15 tab 11/23/24 Allergies Allergy/AdvReac Type Severity Reaction Status Date / Time No Known Allergies Allergy Verified 11/23/24 10:24 Review of Systems ROS Statement: Those systems with pertinent positive or pertinent negative responses have been documented in the HPI. ROS Other: All systems not noted in ROS Statement are negative. Past Medical History Past Medical History: Diabetes Mellitus, Hyperlipidemia, Sleep Apnea/CPAP/BIPAP Additional Past Medical History / Comment(s): Type II NIDDM. Uses CPAP History of Any Multi-Drug Resistant Organisms: None Reported Past Surgical History: Prostate Surgery Additional Past Surgical History / Comment(s): Colonoscopy Past Anesthesia/Blood Transfusion Reactions: No Reported Reaction Additional Past Anesthesia/Blood Transfusion Reaction / Comment(s): No hx of blood transfusion to date. Past Psychological History: No Psychological Hx Reported Smoking Status: Never smoker Past Alcohol Use History: None Reported Past Drug Use History: None Reported - Past Family History Father Family Medical History: No Reported History General Exam Limitations: no limitations General appearance: alert, in no apparent distress Head exam: Present: atraumatic, normocephalic, normal inspection Eye exam: Present: normal appearance, PERRL, EOMI. Absent: scleral icterus, conjunctival injection, periorbital swelling ENT exam: Present: normal exam, mucous membranes moist Neck exam: Present: normal inspection. Absent: tenderness, meningismus, lymphadenopathy Respiratory exam: Present: normal lung sounds bilaterally. Absent: respiratory distress, wheezes, rales, rhonchi, stridor Cardiovascular Exam: Present: regular rate, normal rhythm, normal heart sounds. Absent: systolic murmur, diastolic murmur, rubs, gallop, clicks GI/Abdominal exam: Present: soft, normal bowel sounds, other (Multiple well- healing incision sites to anterior abdomen. No surrounding erythema or drainage). Absent: distended, tenderness, guarding, rebound, rigid Back exam: Absent: CVA tenderness (R), CVA tenderness (L) Neurological exam: Present: alert, oriented X3 Psychiatric exam: Present: normal affect, normal mood Skin exam: Present: warm, dry, intact, normal color. Absent: rash Course Vital Signs 12/03/24 12/03/24 12/03/24 11:38 14:41 15:08 Temperature 102.9 F H 98.5 F 100.1 F H Pulse Rate 113 H 96 93 Respiratory 18 18 20 Rate Blood Pressure 125/67 111/62 106/58 O2 Sat by Pulse 94 L 95 95 Oximetry Medical Decision Making - Medical Decision Making Was pt. sent in by a medical professional or institution (, PA, CHOCOLATE PACKER, urgent care, hospital, or [facility]...) When possible be specific @ -No Did you speak to anyone other than the patient for history (EMS, parent, family, police, friend...)? What history was obtained from this source @ -No Did you review nursing and triage notes (agree or disagree)? Why? @ -I reviewed and agree with nursing and triage notes Were old charts reviewed (outside hosp., previous admission, EMS record, old EKG, old radiological studies, urgent care reports/EKG's, [facility] records)? Report findings @ -No old charts were reviewed Differential Diagnosis (chest pain, altered mental status, abdominal pain women, abdominal pain men, vaginal bleeding, weakness, fever, dyspnea, syncope, headache, dizziness, GI bleed, back pain, seizure, CVA, palpatations, mental health, musculoskeletal)? @ -Differential Fever: Pneumonia, viral URI, endocarditis, myocarditis, pericarditis, otitis, sinusitis, peritonsillar Abscess, retropharyngeal Abscess, epiglottitis, p eritonitis, appendicitis, Britney cystitis, diverticulitis, hepatitis, colitis, UTI, PID, TOA, pyelonephritis, prostatitis, epididymitis, meningitis, encephalitis, pulmonary embolism, CVA, thyroid storm, pancreatitis, adrenal crisis, cavernous sinus thrombosis, this is not meant to be an all-inclusive list. EKG interpreted by me (3pts min.). @ -As above X-rays interpreted by me (1pt min.). @ -Chest x-ray reveals no acute cardiopulmonary process CT interpreted by me (1pt min.). @ -None done U/S interpreted by me (1pt. min.). @ -None done What testing was considered but not performed or refused? (CT, X-rays, U/S, labs)? Why? @ -None What meds were considered but not given or refused? Why? @ -None Did you discuss the management of the patient with other professionals (professionals i.e. , PA, CHOCOLATE PACKER, lab, RT, psych nurse, social sciences lecturer, knifeman, teacher, loans officer, case checker)? Give summary @ -I spoke with Dr. Wilkinson who accepts admission for septic UTI Was smoking cessation discussed for >3mins.? @ -No Was critical care preformed (if so, how long)? @ -Yes, 45 minutes Were there social determinants of health that impacted care today? How? (Homelessness, low income, unemployed, alcoholism, drug addiction, transportation, low edu. Level, literacy, decrease access to med. care, care home, rehab)? @ -No Was there de-escalation of care discussed even if they declined (Discuss DNR or withdrawal of care, Hospice)? DNR status @ -No What co-morbidities impacted this encounter? (DM, HTN, Smoking, COPD, CAD, Cancer, CVA, ARF, Chemo, Hep., AIDS, mental health diagnosis, sleep apnea, morbi d obesity)? @ -None Was patient admitted / discharged? Hospital course, mention meds given and route , prescriptions, significant lab abnormalities, going to OR and other pertinent info. @ -Admitted. 69-year-old male presenting for fever x 4 hours. Patient had TURP with Dr. Jenkins last week. Patient is febrile at 102.9 F, tachycardic at 113 bpm, patient is normotensive. Patient was provided with appropriate IV fluid bolus per sepsis protocol, given Tylenol and ibuprofen for fever, and blood cultures were taken then dose of IV antibiotics was given. Lab work remarkable for leukocytosis of 22 with left shift. Lactic acid normal at 1.2. Urinalysis remarkable for 96 white blood cells and greater than 182 red blood cells, urine culture sent. I spoke with Dr. Wilkinson who accepts admission for septic UTI with medicine consult. Patient stable at time of admission. Case was discussed wit h my ED attending Dr. Garcia. Undiagnosed new problem with uncertain prognosis? @ -No Drug Therapy requiring intensive monitoring for toxicity (Heparin, Nitro, Insulin, Cardizem)? @ -No Were any procedures done? @ -No Diagnosis/symptom? @ -Sepsis, urinary tract infection Acute, or Chronic, or Acute on Chronic? @ -Acute Uncomplicated (without systemic symptoms) or Complicated (systemic symptoms)? @ -Complicated Side effects of treatment? @ -No Exacerbation, Progression, or Severe Exacerbation? @ -No Poses a threat to life or bodily function? How? (Chest pain, [place], [place], pneumonia, PE, COPD, DKA, ARF, appy, cholecystitis, CVA, Diverticulitis, Homicidal, Suicidal, threat to staff... and all critical care pts) @ -Yes, sepsis - Lab Data Result diagrams: 12/03/24 12:40 12/03/24 12:40 Lab Results 12/03/24 12/03/24 12/03/24 Range/Units 12:40 12:40 12:40 WBC 21.90 H (4.50-10.00) 10*3/uL RBC 4.91 (4.40-5.60) 10*6/uL Hgb 14.9 (13.0-17.0) g/dL Hct 43.8 (39.6-50.0) % MCV 89.2 (80.0-97.0) fL MCH 30.3 (27.0-32.0) pg MCHC 34.0 (32.0-37.0) g/dL Plt Count 316 (140-440) 10*3/uL MPV 9.0 L (9.5-12.2) fL Immature Gran % (Auto) 0.5 % Neutrophils % 87.4 % Lymphocytes % 3.3 % Monocytes % 8.5 % Eosinophils % 0.1 % Basophils % 0.2 % Immature Gran # 0.10 H (0.00-0.04) 10*3/uL Neutrophils # 19.14 H (1.80-7.70) 10*3/uL Lymphocytes # 0.72 L (0.90-5.00) 10*3/uL Monocytes # 1.86 H (0.20-1.00) 10*3/uL Eosinophils # 0.03 L (0.04-0.35) 10*3/uL Basophils # 0.05 (0.00-0.10) 10*3/uL PT 10.3 (10.0-12.5) sec INR 0.9 (<1.2) APTT 20.4 L (22.0-30.0) sec Sodium 138 (137-145) mmol/L Potassium 4.2 (3.5-5.1) mmol/L Chloride 103 (98-107) mmol/L Carbon Dioxide 21 L (22-30) mmol/L Anion Gap 14 mmol/L BUN 29 H (9-20) mg/dL Creatinine 1.10 (0.66-1.25) mg/dL Est GFR (CKD-EPI)AfAm 78 (>60 ml/min/1.73 sqM) Est GFR (CKD-EPI)NonAf 68 (>60 ml/min/1.73 sqM) Glucose 159 H (74-99) mg/dL Plasma Lactic Acid Luis Alfredo (0.7-2.0) mmol/L Calcium 10.1 (8.4-10.2) mg/dL Total Bilirubin 0.8 (0.2-1.3) mg/dL AST 21 (17-59) U/L ALT 19 (4-49) U/L Alkaline Phosphatase 105 (38-126) U/L Total Protein 7.0 (6.3-8.2) g/dL Albumin 4.2 (3.5-5.0) g/dL Urine Color Urine Appearance (Clear) Urine pH (5.0-8.0) Ur Specific [place] (1.001-1.035) Urine Protein (Negative) Urine Glucose (UA) (Negative) Urine Ketones (Negative) Urine Blood (Negative) Urine Nitrite (Negative) Urine Bilirubin (Negative) Urine Urobilinogen (<2.0) mg/dL Ur Leukocyte Esterase (Negative) Urine RBC (0-5) /hpf Urine WBC (0-5) /hpf Urine Bacteria (None) /hpf Urine Mucus (None) /hpf Influenza Type A (PCR) (Not Detectd) Influenza Type B (PCR) (Not Detectd) RSV (PCR) (Not Detectd) SARS-CoV-2 (PCR) (Not Detectd) 12/03/24 12/03/24 12/03/24 Range/Units 12:40 12:40 13:25 WBC (4.50-10.00) 10*3/uL RBC (4.40-5.60) 10*6/uL Hgb (13.0-17.0) g/dL Hct (39.6-50.0) % MCV (80.0-97.0) fL MCH (27.0-32.0) pg MCHC (32.0-37.0) g/dL Plt Count (140-440) 10*3/uL MPV (9.5-12.2) fL Immature Gran % (Auto) % Neutrophils % % Lymphocytes % % Monocytes % % Eosinophils % % Basophils % % Immature Gran # (0.00-0.04) 10*3/uL Neutrophils # (1.80-7.70) 10*3/uL Lymphocytes # (0.90-5.00) 10*3/uL Monocytes # (0.20-1.00) 10*3/uL Eosinophils # (0.04-0.35) 10*3/uL Basophils # (0.00-0.10) 10*3/uL PT (10.0-12.5) sec INR (<1.2) APTT (22.0-30.0) sec Sodium (137-145) mmol/L Potassium (3.5-5.1) mmol/L Chloride (98-107) mmol/L Carbon Dioxide (22-30) mmol/L Anion Gap mmol/L BUN (9-20) mg/dL Creatinine (0.66-1.25) mg/dL Est GFR (CKD-EPI)AfAm (>60 ml/min/1.73 sqM) Est GFR (CKD-EPI)NonAf (>60 ml/min/1.73 sqM) Glucose (74-99) mg/dL Plasma Lactic Acid Luis Alfredo 1.2 (0.7-2.0) mmol/L Calcium (8.4-10.2) mg/dL Total Bilirubin (0.2-1.3) mg/dL AST (17-59) U/L ALT (4-49) U/L Alkaline Phosphatase (38-126) U/L Total Protein (6.3-8.2) g/dL Albumin (3.5-5.0) g/dL Urine Color Light Yellow Urine Appearance Cloudy (Clear) Urine pH 6.0 (5.0-8.0) Ur Specific [place] 1.022 (1.001-1.035) Urine Protein 2+ H (Negative) Urine Glucose (UA) 4+ H (Negative) Urine Ketones 1+ H (Negative) Urine Blood Moderate H (Negative) Urine Nitrite Negative (Negative) Urine Bilirubin Negative (Negative) Urine Urobilinogen <2.0 (<2.0) mg/dL Ur Leukocyte Esterase Moderate H (Negative) Urine RBC >182 H (0-5) /hpf Urine WBC 96 H (0-5) /hpf Urine Bacteria Rare H (None) /hpf Urine Mucus Occasional H (None) /hpf Influenza Type A (PCR) Not Detected (Not Detectd) Influenza Type B (PCR) Not Detected (Not Detectd) RSV (PCR) Not Detected (Not Detectd) SARS-CoV-2 (PCR) Not Detected (Not Detectd) - EKG Data -: EKG Interpreted by Me EKG Comments: EKG reveals sinus tachycardia with inverted T waves in lead III and V1. Ventricular rate 115 bpm, NH interval 135, QRS duration 84, QT/QTc 326/394 Disposition Clinical Impression: Sepsis, Urinary tract infection Disposition: ADMITTED IP TO THIS HOSP Referrals: Mode Cheney MD [Primary Care Provider] - 1-2 days Time of Disposition: 15:15
[2024-12-03 13:00] LABS: Basophils # (A) 0.05 10*3/uL (0.00-0.10); Basophils % (A) 0.2 %; Eosinophils # (A) 0.03 10*3/uL (0.04-0.35); Eosinophils % (A) 0.1 %; HCT 43.8 % (39.6-50.0); HGB 14.9 g/dL (13.0-17.0); Lymphocytes # (A) 0.72 10*3/uL (0.90-5.00); Lymphocytes % (A) 3.3 %; MCH 30.3 pg (27.0-32.0); MCHC 34.0 g/dL (32.0-37.0); MCV 89.2 fL (80.0-97.0); Monocytes # (A) 1.86 10*3/uL (0.20-1.00); Monocytes % (A) 8.5 %; Neutrophils # (A) 19.14 10*3/uL (1.80-7.70); Neutrophils % (A) 87.4 %; Platelet Count 316 10*3/uL (140-440); RBC 4.91 10*6/uL (4.40-5.60); RDW 12.6 % (11.5-14.5); WBC 21.90 10*3/uL (4.50-10.00)
--- NOTE | 2024-12-03 13:06 | XR ---
Chest, 2 view. CLINICAL INDICATION: Male, 69 years old with history of cough, fever COMPARISON: None TECHNIQUE: PA and lateral views the chest are obtained. FINDINGS: The lungs are clear and there is no consolidative or interstitial opacity. There is no pleural effusion or pneumothorax. The heart, pulmonary vasculature, mediastinum and beatriz appear normal. The osseous structures are intact. IMPRESSION: No significant abnormality seen. No acute cardiopulmonary disease. [facility], , 12/03/2024 1:04 PM
[2024-12-03 13:12] LABS: ALT 19 U/L (4-49); AST 21 U/L (17-59); African American GFR (CKD) 78 (>60 ml/min/1.73 sqM); Albumin 4.2 g/dL (3.5-5.0); Alkaline Phosphatase 105 U/L (38-126); Anion Gap 14 mmol/L; Blood Urea Nitrogen 29 mg/dL (9-20); Calcium 10.1 mg/dL (8.4-10.2); Carbon Dioxide 21 mmol/L (22-30); Chloride 103 mmol/L (98-107); Glucose 159 mg/dL (74-99); Non-African American GFR(CKD) 68 (>60 ml/min/1.73 sqM); Potassium 4.2 mmol/L (3.5-5.1); Sodium 138 mmol/L (137-145); Total Protein 7.0 g/dL (6.3-8.2)
[2024-12-03 13:19] LABS: INR 0.9 (<1.2); Prothrombin Time 10.3 sec (10.0-12.5)
[2024-12-03] MEDS: IBUPROFEN 600 MG TAB PO STA (13:24)
[2024-12-03] MEDS: ACETAMINOPHEN TAB 500 MG TAB PO STA (13:24)
[2024-12-03 13:27] LABS: Partial Thromboplastin Time 20.4 sec (22.0-30.0)
[2024-12-03 13:35] LABS: RSV Not Detected (Not Detectd)
[2024-12-03] MEDS: LACTATED RINGERS 1,000 ML IV SCH ×2 (13:54→16:43)
[2024-12-03 14:27] LABS: Bacteria,Urine Rare /hpf; Bilirubin,Urine Negative (Negative); Blood,Urine Moderate (Negative); Color,Urine Light Yellow; Glucose,Urine (UA) 4+ (Negative); Ketones,Urine 1+ (Negative); Leukocyte Esterase,Urine Moderate (Negative); Mucus,Urine Occasional /hpf; Nitrite,Urine Negative (Negative); PH, Urine 6.0 (5.0-8.0); Protein,Urine 2+ (Negative); RBC,Urine >182 /hpf (0-5); Specific Gravity,Urine 1.022 (1.001-1.035); Urobilinogen,Urine <2.0 mg/dL (<2.0); WBC,Urine 96 /hpf (0-5)
[2024-12-03] MEDS ORDERED: ACETAMINOPHEN TAB 325 MG TAB PO PRN (15:15)
[2024-12-03] MEDS ORDERED: KETOROLAC 15 MG/ML 1 ML VIAL IVP PRN (15:15)
[2024-12-03] MEDS ORDERED: NALOXONE 0.4 MG/ML 1 ML VIAL IV PRN (15:15)
[2024-12-03] MEDS ORDERED: ONDANSETRON 4 MG/2 ML VIAL IVP PRN (15:15)
[2024-12-03] MEDS: cefTRIAXone IN SWFI 1,000 MG/10 ML SYRINGE IVP STA (16:11)
[2024-12-03] MEDS: SODIUM CHLORIDE 0.9% 1,000 ML IV SCH (16:12)
[2024-12-03 17:17] LABS: Glucose,Whole Blood 169 mg/dL (70-110)
[2024-12-03 20:08] LABS: Glucose,Whole Blood 265 mg/dL (70-110)
[2024-12-04 07:11] LABS: Glucose,Whole Blood 131 mg/dL (70-110)
[2024-12-04 10:13] LABS: Basophils # (A) 0.06 10*3/uL (0.00-0.10); Basophils % (A) 0.3 %; Eosinophils # (A) 0.10 10*3/uL (0.04-0.35); Eosinophils % (A) 0.5 %; HCT 35.0 % (39.6-50.0); HGB 12.0 g/dL (13.0-17.0); Lymphocytes # (A) 1.51 10*3/uL (0.90-5.00); Lymphocytes % (A) 7.0 %; MCH 31.4 pg (27.0-32.0); MCHC 34.3 g/dL (32.0-37.0); MCV 91.6 fL (80.0-97.0); Monocytes # (A) 1.37 10*3/uL (0.20-1.00); Monocytes % (A) 6.3 %; Neutrophils # (A) 18.52 10*3/uL (1.80-7.70); Neutrophils % (A) 85.3 %; Platelet Count 274 10*3/uL (140-440); RBC 3.82 10*6/uL (4.40-5.60); RDW 12.8 % (11.5-14.5); WBC 21.68 10*3/uL (4.50-10.00)
[2024-12-04 10:26] LABS: ALT 26 U/L (4-49); AST 60 U/L (17-59); African American GFR (CKD) >90 (>60 ml/min/1.73 sqM); Albumin 2.8 g/dL (3.5-5.0); Albumin/Globulin Ratio 1.2; Alkaline Phosphatase 66 U/L (38-126); Anion Gap 8 mmol/L; Blood Urea Nitrogen 24 mg/dL (9-20); Calcium 8.8 mg/dL (8.4-10.2); Carbon Dioxide 23 mmol/L (22-30); Chloride 106 mmol/L (98-107); Globulin 2.4 g/dL; Glucose 161 mg/dL (74-99); Non-African American GFR(CKD) 79 (>60 ml/min/1.73 sqM); Potassium 4.1 mmol/L (3.5-5.1); Sodium 137 mmol/L (137-145); Total Protein 5.2 g/dL (6.3-8.2)
[2024-12-04 11:32] LABS: Glucose,Whole Blood 112 mg/dL (70-110)
--- NOTE | 2024-12-04 13:09 | P.GSHP ---
History of Present Illness H&P Date: 12/04/24 Chief Complaint: UTI This is a 69-year-old male that underwent a robotic simple prostatectomy on November 23. No complications during surgery he was discharged home on postop day #1. Surgery was performed for incomplete bladder emptying. He presented to the emergency room room last night with fevers and chills. Denies any dysuria or gross hematuria nausea or vomiting. Otherwise he is feeling well. Urinalysis on presentation was concerning for UTI. He was admitted to the hospital for his UTI. He is afebrile this morning. urine culture is pending. - Constitutional Constitutional: Reports chills, Reports fever - EENT Ears, nose, mouth and throat: Denies headache, Denies sore throat - Cardiovascular Cardiovascular: Denies chest pain, Denies shortness of breath - Respiratory Respiratory: Denies cough, Denies 7 - Gastrointestinal Gastrointestinal: Denies abdominal pain, Denies diarrhea, Denies nausea, Denies vomiting - Genitourinary (Female) Genitourinary: Denies dysuria, Denies hematuria - Musculoskeletal Musculoskeletal: Denies myalgias Past Medical History Past Medical History: Diabetes Mellitus, Hyperlipidemia, Sleep Apnea/CPAP/BIPAP Additional Past Medical History / Comment(s): Type II NIDDM. Uses CPAP History of Any Multi-Drug Resistant Organisms: None Reported Past Surgical History: Prostate Surgery Additional Past Surgical History / Comment(s): Colonoscopy Past Anesthesia/Blood Transfusion Reactions: No Reported Reaction Additional Past Anesthesia/Blood Transfusion Reaction / Comment(s): No hx of blood transfusion to date. Past Psychological History: No Psychological Hx Reported Smoking Status: Never smoker Past Alcohol Use History: None Reported Past Drug Use History: None Reported - Past Family History Father Family Medical History: No Reported History Medications and Allergies Home Medications Medication Instructions Recorded Confirmed Type Atorvastatin [Lipitor] 80 mg PO HS 09/23/23 12/03/24 History Dapagliflozin Propanediol [Farxiga] 10 mg PO DAILY 09/23/23 12/03/24 History Ezetimibe [Zetia] 10 mg PO DAILY 09/23/23 12/03/24 History lisinopriL [Zestril] 2.5 mg PO DAILY 09/23/23 12/03/24 History Cephalexin [Keflex] 500 mg PO Q8HR #15 cap 11/23/24 12/03/24 Rx Tamsulosin HCl [Flomax] 0.4 mg PO 12/03/24 History Allergies Allergy/AdvReac Type Severity Reaction Status Date / Time No Known Allergies Allergy Verified 12/03/24 17:13 Surgical - Exam Vital Signs Temp Pulse Resp BP Pulse Ox 102.9 F H 113 H 18 125/67 94 L 12/03/24 11:38 12/03/24 11:38 12/03/24 11:38 12/03/24 11:38 12/03/24 11:38 - General no distress, no pain - Eyes normal ocular movement, no pale - ENT normal nares, normal mucosa - Respiratory normal expansion, normal respiratory effort Results - Labs 12/04/24 09:28 12/04/24 09:28 Abnormal Lab Results - Last 24 Hours (Table) 12/03/24 12/03/24 12/03/24 Range/Units 12:40 12:40 12:40 WBC 21.90 H (4.50-10.00) 10*3/uL RBC (4.40-5.60) 10*6/uL Hgb (13.0-17.0) g/dL Hct (39.6-50.0) % MPV 9.0 L (9.5-12.2) fL Immature Gran # 0.10 H (0.00-0.04) 10*3/uL Neutrophils # 19.14 H (1.80-7.70) 10*3/uL Lymphocytes # 0.72 L (0.90-5.00) 10*3/uL Monocytes # 1.86 H (0.20-1.00) 10*3/uL Eosinophils # 0.03 L (0.04-0.35) 10*3/uL APTT 20.4 L (22.0-30.0) sec Carbon Dioxide 21 L (22-30) mmol/L BUN 29 H (9-20) mg/dL Glucose 159 H (74-99) mg/dL POC Glucose (mg/dL) (70-110) mg/dL AST (17-59) U/L Total Protein (6.3-8.2) g/dL Albumin (3.5-5.0) g/dL Urine Protein (Negative) Urine Glucose (UA) (Negative) Urine Ketones (Negative) Urine Blood (Negative) Ur Leukocyte Esterase (Negative) Urine RBC (0-5) /hpf Urine WBC (0-5) /hpf Urine Bacteria (None) /hpf Urine Mucus (None) /hpf 12/03/24 12/03/24 12/03/24 Range/Units 13:25 17:16 20:06 WBC (4.50-10.00) 10*3/uL RBC (4.40-5.60) 10*6/uL Hgb (13.0-17.0) g/dL Hct (39.6-50.0) % MPV (9.5-12.2) fL Immature Gran # (0.00-0.04) 10*3/uL Neutrophils # (1.80-7.70) 10*3/uL Lymphocytes # (0.90-5.00) 10*3/uL Monocytes # (0.20-1.00) 10*3/uL Eosinophils # (0.04-0.35) 10*3/uL APTT (22.0-30.0) sec Carbon Dioxide (22-30) mmol/L BUN (9-20) mg/dL Glucose (74-99) mg/dL POC Glucose (mg/dL) 169 H 265 H (70-110) mg/dL AST (17-59) U/L Total Protein (6.3-8.2) g/dL Albumin (3.5-5.0) g/dL Urine Protein 2+ H (Negative) Urine Glucose (UA) 4+ H (Negative) Urine Ketones 1+ H (Negative) Urine Blood Moderate H (Negative) Ur Leukocyte Esterase Moderate H (Negative) Urine RBC >182 H (0-5) /hpf Urine WBC 96 H (0-5) /hpf Urine Bacteria Rare H (None) /hpf Urine Mucus Occasional H (None) /hpf 12/04/24 12/04/24 12/04/24 Range/Units 07:09 09:28 09:28 WBC 21.68 H (4.50-10.00) 10*3/uL RBC 3.82 L (4.40-5.60) 10*6/uL Hgb 12.0 L (13.0-17.0) g/dL Hct 35.0 L (39.6-50.0) % MPV (9.5-12.2) fL Immature Gran # 0.12 H (0.00-0.04) 10*3/uL Neutrophils # 18.52 H (1.80-7.70) 10*3/uL Lymphocytes # (0.90-5.00) 10*3/uL Monocytes # 1.37 H (0.20-1.00) 10*3/uL Eosinophils # (0.04-0.35) 10*3/uL APTT (22.0-30.0) sec Carbon Dioxide (22-30) mmol/L BUN 24 H (9-20) mg/dL Glucose 161 H (74-99) mg/dL POC Glucose (mg/dL) 131 H (70-110) mg/dL AST 60 H (17-59) U/L Total Protein 5.2 L (6.3-8.2) g/dL Albumin 2.8 L (3.5-5.0) g/dL Urine Protein (Negative) Urine Glucose (UA) (Negative) Urine Ketones (Negative) Urine Blood (Negative) Ur Leukocyte Esterase (Negative) Urine RBC (0-5) /hpf Urine WBC (0-5) /hpf Urine Bacteria (None) /hpf Urine Mucus (None) /hpf // Range/Units 11:30 WBC (4.50-10.00) 10*3/uL RBC (4.40-5.60) 10*6/uL Hgb (13.0-17.0) g/dL Hct (39.6-50.0) % MPV (9.5-12.2) fL Immature Gran # (0.00-0.04) 10*3/uL Neutrophils # (1.80-7.70) 10*3/uL Lymphocytes # (0.90-5.00) 10*3/uL Monocytes # (0.20-1.00) 10*3/uL Eosinophils # (0.04-0.35) 10*3/uL APTT (22.0-30.0) sec Carbon Dioxide (22-30) mmol/L BUN (9-20) mg/dL Glucose (74-99) mg/dL POC Glucose (mg/dL) 112 H (70-110) mg/dL AST (17-59) U/L Total Protein (6.3-8.2) g/dL Albumin (3.5-5.0) g/dL Urine Protein (Negative) Urine Glucose (UA) (Negative) Urine Ketones (Negative) Urine Blood (Negative) Ur Leukocyte Esterase (Negative) Urine RBC (0-5) /hpf Urine WBC (0-5) /hpf Urine Bacteria (None) /hpf Urine Mucus (None) /hpf Diabetes panel 12/03/24 12/04/24 Range/Units 12:40 09:28 Sodium 138 137 (137-145) mmol/L Potassium 4.2 4.1 (3.5-5.1) mmol/L Chloride 103 106 (98-107) mmol/L Carbon Dioxide 21 L 23 (22-30) mmol/L BUN 29 H 24 H (9-20) mg/dL Creatinine 1.10 0.97 (0.66-1.25) mg/dL Glucose 159 H 161 H (74-99) mg/dL Calcium 10.1 8.8 (8.4-10.2) mg/dL AST 21 60 H (17-59) U/L ALT 19 26 (4-49) U/L Alkaline Phosphatase 105 66 (38-126) U/L Total Protein 7.0 5.2 L (6.3-8.2) g/dL Albumin 4.2 2.8 L (3.5-5.0) g/dL Calcium panel 12/03/24 12/04/24 Range/Units 12:40 09:28 Calcium 10.1 8.8 (8.4-10.2) mg/dL Albumin 4.2 2.8 L (3.5-5.0) g/dL Pituitary panel 12/03/24 12/04/24 Range/Units 12:40 09:28 Sodium 138 137 (137-145) mmol/L Potassium 4.2 4.1 (3.5-5.1) mmol/L Chloride 103 106 (98-107) mmol/L Carbon Dioxide 21 L 23 (22-30) mmol/L BUN 29 H 24 H (9-20) mg/dL Creatinine 1.10 0.97 (0.66-1.25) mg/dL Glucose 159 H 161 H (74-99) mg/dL Calcium 10.1 8.8 (8.4-10.2) mg/dL Adrenal panel 12/03/24 12/04/24 Range/Units 12:40 09:28 Sodium 138 137 (137-145) mmol/L Potassium 4.2 4.1 (3.5-5.1) mmol/L Chloride 103 106 (98-107) mmol/L Carbon Dioxide 21 L 23 (22-30) mmol/L BUN 29 H 24 H (9-20) mg/dL Creatinine 1.10 0.97 (0.66-1.25) mg/dL Glucose 159 H 161 H (74-99) mg/dL Calcium 10.1 8.8 (8.4-10.2) mg/dL Total Bilirubin 0.8 0.4 (0.2-1.3) mg/dL AST 21 60 H (17-59) U/L ALT 19 26 (4-49) U/L Alkaline Phosphatase 105 66 (38-126) U/L Total Protein 7.0 5.2 L (6.3-8.2) g/dL Albumin 4.2 2.8 L (3.5-5.0) g/dL Assessment and Plan Assessment: This is a 69-year-old male status post robotic simple prostatectomy on November 23 presents to the hospital for UTI. At this point we will continue with IV antibiotics, will reassess tomorrow and if patient remains afebrile for greater than 24 hours I will plan on removing the catheter and discharging home with po antibiotics
[2024-12-04 16:50] LABS: Glucose,Whole Blood 137 mg/dL (70-110)
--- NOTE | 2024-12-04 18:59 | P.CONS ---
History of Present Illness - Reason for Consult Consult date: 12/04/24 Medical management Requesting physician: Fabian Wilkinson - Chief Complaint Urinary tract infection post TURP - History of Present Illness HISTORY OF PRESENT ILLNESS: This is a 69-year-old male with a previous medical history significant for hypertension and hypertensive cardiovascular disease, mixed hyperlipidemia, diabetes mellitus type 2, BPH, underwent on November 23 robotic assisted simple prostatectomy and he was discharged home on oral antibiotic in the form of cephalexin, apparently patient came back to the emergency department with increased fever and chills associated with increased sinus symptoms of urine tract infection, he was evaluated in the emergency department at [facility] he was found to have a significant leukocytosis, with a significant urinary tract infection, urine culture was sent, he was started on IV fluid in the form of normal saline at 130 cc an hour, he was placed on IV antibiotic in the form of ceftriaxone 1 g piggyback every 24 hours, I was asked to see the patient for medical management. REVIEW OF SYSTEMS: Constitutional: No documented fever, no chills, no night sweats. No weight change. No weakness, fatigue or lethargy. No daytime sleepiness. EENT: No headache. No blurred vision or double vision, no loss of vision. No loss of Hearing, no ringing in the ears, no dizziness. No nasal drainage or congestion. No epistaxis. No sore throat. Lungs: No shortness of breath, no cough, no sputum production. No wheezing. Reports dyspnea with activity. Cardiovascular: No chest pain, no lower extremity edema. No palpitations. No paroxysmal nocturnal dyspnea. No orthopnea. No lightheadedness or dizziness. No syncopal episodes. Abdominal: Reports abdominal pain. No nausea, vomiting. No diarrhea. No constipation. No bloody or tarry stools reports loss of appetite. Genitourinary: No dysuria, increased frequency, urgency. No urinary retention. Musculoskeletal: No myalgias. No muscle weakness, no gait dysfunction, no frequent falls. No back pain. No neck pain. Integumentary: No wounds, no lesions. No rash or pruritus. No unusual bruising. No change in hair or nails. Neurologic: No aphasia. No facial droop. No change in mentation. No head injury. No headache. No paralysis. No paresthesia. Psychiatric: No depression. No anxiety. No mood swings. Endocrine: No abnormal blood sugars. No weight change. PAST MEDICAL HISTORY: Hypertension and hypertensive cardiovascular disease. Mixed hyperlipidemia. Diabetes mellitus type 2. Enlarged prostate. Obstructive sleep apnea. PAST SURGICAL HISTORY: Vasectomy 1977 Colonoscopy 2009 Colonoscopy 2020 Robotic assisted simple prostatectomy November 23, 2024 SOCIAL HISTORY: Patient is a lifelong non-smoker, he denies any alcohol ingestion, no drug use or abuse. FAMILY HISTORY: Father at the age of 93 from diabetes complications as well as dementia mother at the age of 74 from diabetes hypertension congestive heart failure patient has 2 brothers 1 is diabetic patient has 4 sisters 2 with diabetes insulin requiring and 2 other diabetic with type II patient has 1 son alive and well and 1 daughter alive and well. PHYSICAL EXAMINATION: General: 69-year-old male laying down in bed in no apparent distress HEENT: Head is atraumatic, normocephalic, pupils were equal round reactive to light and recommendation, extraocular muscle movement were intact, sclera nonicteric, conjunctivae were pale, mucous membranes of the mouth are somewhat dry. Neck: Supple, no JVP, normal carotid upstroke bilaterally, no lymphadenopathy. Chest: Decreased breath sounds at the bases, few rhonchi, no expiratory wheezes, no chest wall tenderness, no intercostal retractions. Heart: First heart sound is normal, second heart sounds normal systolic ejection murmur 2/6 located left sternal border. Abdomen: Soft, nontender, nondistended, positive bowel sounds. Extremities: There is no edema no calf tenderness DP +2 bilaterally. Neurologic examination: Patient is awake alert and oriented x3 cranial nerves II-12 appear grossly intact, muscle power were 5 out of 5 in upper extremities and 5 out of 5 in bilateral lower extremities, deep tendon reflexes normal bilaterally. ASSESSMENT AND PLAN: 1. Complicated urinary tract infection with sepsis post robotic assisted simple prostatectomy. Continue patient on ceftriaxone increase the dose to 2 g piggyback every 24 hours, urine culture is pending, continue IV fluid but de crease to 100 cc an hour, monitor the patient symptoms very closely, continue Tylenol, follow-up with the patient very closely. 2. Hypertension and hypertensive cardiovascular disease. Continue patient on lisinopril 2.5 mg orally once every day monitor the patient blood pressure very closely. 3. Mixed hyperlipidemia. Continue patient on atorvastatin 40 mg once every day, continue Zetia 10 mg once every day. Monitor lipid panel, keep LDL 55-70. 4. Obstructive sleep apnea. Continue patient on CPAP. 5. Enlarged prostate status post robotic assisted simple prostatectomy continue Flomax 0.4 mg once every day. 6. Coronary artery disease of [place] coronary artery continue baby aspirin 81 mg once every day, continue atorvastatin 40 mg once every day, Zetia 10 mg once every day. 7. DVT prophylaxis. Start the patient on Lovenox 40 mg subcutaneously every 24 hours. 8. GI prophylaxis. Continue patient on Protonix 40 mg once every day. 9. Thank you for the consult we will follow the patient with you. Past Medical History Past Medical History: Diabetes Mellitus, Hyperlipidemia, Sleep Apnea/CPAP/BIPAP Additional Past Medical History / Comment(s): Type II NIDDM. Uses CPAP History of Any Multi-Drug Resistant Organisms: None Reported Past Surgical History: Prostate Surgery Additional Past Surgical History / Comment(s): Colonoscopy Past Anesthesia/Blood Transfusion Reactions: No Reported Reaction Additional Past Anesthesia/Blood Transfusion Reaction / Comm: No hx of blood transfusion to date. Past Psychological History: No Psychological Hx Reported Smoking Status: Never smoker Past Alcohol Use History: None Reported Past Drug Use History: None Reported - Past Family History Father Family Medical History: No Reported History Medications and Allergies Home Medications Medication Instructions Recorded Confirmed Type Atorvastatin [Lipitor] 80 mg PO HS 09/23/23 12/03/24 History Dapagliflozin Propanediol [Farxiga] 10 mg PO DAILY 09/23/23 12/03/24 History Ezetimibe [Zetia] 10 mg PO DAILY 09/23/23 12/03/24 History lisinopriL [Zestril] 2.5 mg PO DAILY 09/23/23 12/03/24 History Cephalexin [Keflex] 500 mg PO Q8HR #15 cap 11/23/24 12/03/24 Rx Tamsulosin HCl [Flomax] 0.4 mg PO 12/03/24 History Allergies Allergy/AdvReac Type Severity Reaction Status Date / Time No Known Allergies Allergy Verified 12/03/24 17:13 Physical Exam Vitals: Vital Signs Temp Pulse Pulse Resp BP BP Pulse Ox 12/04/24 07:11 98.0 F 63 16 102/64 94 L 12/04/24 01:39 97.7 F 59 L 18 99/63 97 12/03/24 19:49 98.3 F 74 20 91/54 91 L 12/03/24 19:30 74 12/03/24 17:30 98.5 F 86 20 102/60 96 12/03/24 16:00 99.5 F 84 17 105/56 95 12/03/24 15:08 100.1 F H 93 20 106/58 95 12/03/24 14:41 98.5 F 96 18 111/62 95 12/03/24 11:38 102.9 F H 113 H 18 125/67 94 L Intake and Output 12/03/24 12/04/24 12/04/24 22:59 06:59 14:59 Intake Total 580 180 Output Total 900 900 Balance -320 -900 180 Intake: Oral 580 180 Output: Urine 900 900 Other: Voiding Method Indwelling Catheter Weight 98.43 kg Results CBC & Chem 7: 12/03/24 12:40 12/03/24 12:40 Labs: Abnormal Lab Results - Last 24 Hours (Table) 12/03/24 12/03/24 12/03/24 Range/Units 12:40 12:40 12:40 WBC 21.90 H (4.50-10.00) 10*3/uL MPV 9.0 L (9.5-12.2) fL Immature Gran # 0.10 H (0.00-0.04) 10*3/uL Neutrophils # 19.14 H (1.80-7.70) 10*3/uL Lymphocytes # 0.72 L (0.90-5.00) 10*3/uL Monocytes # 1.86 H (0.20-1.00) 10*3/uL Eosinophils # 0.03 L (0.04-0.35) 10*3/uL APTT 20.4 L (22.0-30.0) sec Carbon Dioxide 21 L (22-30) mmol/L BUN 29 H (9-20) mg/dL Glucose 159 H (74-99) mg/dL POC Glucose (mg/dL) (70-110) mg/dL Urine Protein (Negative) Urine Glucose (UA) (Negative) Urine Ketones (Negative) Urine Blood (Negative) Ur Leukocyte Esterase (Negative) Urine RBC (0-5) /hpf Urine WBC (0-5) /hpf Urine Bacteria (None) /hpf Urine Mucus (None) /hpf 12/03/24 12/03/24 12/03/24 Range/Units 13:25 17:16 20:06 WBC (4.50-10.00) 10*3/uL MPV (9.5-12.2) fL Immature Gran # (0.00-0.04) 10*3/uL Neutrophils # (1.80-7.70) 10*3/uL Lymphocytes # (0.90-5.00) 10*3/uL Monocytes # (0.20-1.00) 10*3/uL Eosinophils # (0.04-0.35) 10*3/uL APTT (22.0-30.0) sec Carbon Dioxide (22-30) mmol/L BUN (9-20) mg/dL Glucose (74-99) mg/dL POC Glucose (mg/dL) 169 H 265 H (70-110) mg/dL Urine Protein 2+ H (Negative) Urine Glucose (UA) 4+ H (Negative) Urine Ketones 1+ H (Negative) Urine Blood Moderate H (Negative) Ur Leukocyte Esterase Moderate H (Negative) Urine RBC >182 H (0-5) /hpf Urine WBC 96 H (0-5) /hpf Urine Bacteria Rare H (None) /hpf Urine Mucus Occasional H (None) /hpf 12/04/24 Range/Units 07:09 WBC (4.50-10.00) 10*3/uL MPV (9.5-12.2) fL Immature Gran # (0.00-0.04) 10*3/uL Neutrophils # (1.80-7.70) 10*3/uL Lymphocytes # (0.90-5.00) 10*3/uL Monocytes # (0.20-1.00) 10*3/uL Eosinophils # (0.04-0.35) 10*3/uL APTT (22.0-30.0) sec Carbon Dioxide (22-30) mmol/L BUN (9-20) mg/dL Glucose (74-99) mg/dL POC Glucose (mg/dL) 131 H (70-110) mg/dL Urine Protein (Negative) Urine Glucose (UA) (Negative) Urine Ketones (Negative) Urine Blood (Negative) Ur Leukocyte Esterase (Negative) Urine RBC (0-5) /hpf Urine WBC (0-5) /hpf Urine Bacteria (None) /hpf Urine Mucus (None) /hpf
[2024-12-04 20:19] LABS: Glucose,Whole Blood 135 mg/dL (70-110)
[2024-12-04] MEDS: ATORVASTATIN 80 MG TAB PO SCH (20:30)
[2024-12-05 07:02] LABS: Glucose,Whole Blood 133 mg/dL (70-110)
[2024-12-05] MEDS: EZETIMIBE 10 MG TAB PO SCH (08:10)
[2024-12-05] MEDS: TAMSULOSIN 0.4 MG CAP.ER.24H PO SCH (08:10)
[2024-12-05] MEDS: ENOXAPARIN 40 MG/0.4 ML SYRINGE SQ SCH (08:10)
[2024-12-05] MEDS: DAPAGLIFLOZIN PROPANEDIOL 10 MG TABLET PO SCH (08:10)
[2024-12-05] MEDS: PANTOPRAZOLE 40 MG TABLET PO SCH (08:10)
[2024-12-05 08:19] LABS: HCT 37.4 % (39.6-50.0); HGB 12.0 g/dL (13.0-17.0); MCH 29.8 pg (27.0-32.0); MCHC 32.1 g/dL (32.0-37.0); MCV 92.8 FL (80.0-97.0); NRBC Per 100 WBC 0 X 10*3/uL (0.00-0.01); Platelet Count 277 X 10*3/uL (140-440); RBC 4.03 X 10*6/uL (4.40-5.60); RDW 12.8 % (11.5-14.5); WBC 17.33 X 10*3/uL (4.50-10.00)
[2024-12-05 08:34] LABS: ALT 28 U/L (10-49); AST 55 U/L (14-35); Albumin 3.1 g/dL (3.8-4.9); Albumin/Globulin Ratio 1.55 Ratio (1.60-3.17); Alkaline Phosphatase 71 U/L (41-126); Anion Gap 9.60 mmol/L (4.00-12.00); BUN/Creat Ratio 15.36 Ratio (12.00-20.00); Blood Urea Nitrogen 16.9 mg/dL (9.0-27.0); Calcium 8.5 mg/dL (8.7-10.3); Carbon Dioxide 23.4 mmol/L (21.6-31.8); Chloride 107 mmol/L (96-109); Globulin 2.0 g/dL (1.6-3.3); Glucose 127 mg/dL (70-110); Potassium 4.1 mmol/L (3.5-5.5); Sodium 140 mmol/L (135-145); Total Protein 5.1 g/dL (6.2-8.2)
[2024-12-05 10:31] LABS: Basophils # (A) 0.08 X 10*3/uL (0.00-0.10); Basophils % (A) 0.5 %; Eosinophils # (A) 0.18 X 10*3/uL (0.04-0.35); Eosinophils % (A) 1.0 %; Immature Grans, Automated 0.60 %; Lymphocytes # (A) 1.95 X 10*3/uL (0.90-5.00); Lymphocytes % (A) 11.3 %; Monocytes # (A) 1.51 X 10*3/uL (0.20-1.00); Monocytes % (A) 8.7 %; Neutrophils # (A) 13.51 X 10*3/uL (1.80-7.70); Neutrophils % (A) 77.9 %
--- NOTE | 2024-12-05 11:25 | CDI ---
Documentation Clarification Form Date: 12/05/2024 11:14:42 AM From: Lisa Story RN CCDS Phone: [phone] Admit Date: 12/03/2024 04:02:00 PM Patient Name: Garcia Marroquin Visit Number: [id number] Discharge Date: ATTENTION: The Clinical Documentation Specialists (CDI) and [facility] Coding Staff appreciate your assistance in clarifying documentation. Please respond to the clarification below the line at the bottom and electronically sign. The CDI & [facility] Coding staff will review the response and follow-up if needed. Please note: Queries are made part of the Legal Health Record. If you have any questions, please contact the author of this message via ITS. Doctor: Fabian Wilkinson UTI is documented 12/04, HP and patient has Barrios. Additional clarification regarding the etiology of the UTI is requested. History/Risk Factors: 69 year old male presents to the ED increased fever chills. Patient had Robotic assisted simple prostatectomy 11/23, Medical HP: BPH, DM2, HTN and GARY. 12/04, HP. Clinical Indicators: Urinalysis, 12/03: Light yellow, cloudy, ph 6.0, Specific gravity 1.022, protein 2+, Glucose 4+ Ketones 1+ Blood Moderate, Leukocyte Esterase Moerate H, RBC >182 Wbc 96, bacteria rare mucus occasional Urine culture, 12/03: Gram Neg Bacilli Lab results, 12/03: Wbc 21.90, Neutrophils 19.14, Treatment: 12/03 Ceftriaxone IVPB x 1; 12/03 [place]pe[place] IVP x 1; 12/04 Ceftriaxone IVPB Q24H Fluids: 12/03 12/04 0.9ns 100cchr; 12/03 Lactated Ringers IV 100cc/hr Please clarify the etiology of the UTI, if known: [ ] Barrios catheter [ ] UTI not related to catheter/urostomy [ ] Other condition, please specify [ x] Unable to determine (Template Last Revised: July 2020) [id number]
[2024-12-05 12:04] LABS: Glucose,Whole Blood 156 mg/dL (70-110)
[2024-12-05 12:37] VITALS: BP 129/80; PULSE 75; RESP 15; TEMP 97.5
--- NOTE | 2024-12-05 13:09 | P.PN ---
Subjective Progress Note Date: 12/05/24 HISTORY OF PRESENT ILLNESS: This is a 69-year-old male with a previous medical history significant for hypertension and hypertensive cardiovascular disease, mixed hyperlipidemia, diabetes mellitus type 2, BPH, underwent on November 23 robotic assisted simple prostatectomy and he was discharged home on oral antibiotic in the form of cephalexin, apparently patient came back to the emergency department with increased fever and chills associated with increased sinus symptoms of urine tract infection, he was evaluated in the emergency department at [facility] he was found to have a significant leukocytosis, with a significant urinary tract infection, urine culture was sent, he was started on IV fluid in the form of normal saline at 130 cc an hour, he was placed on IV antibiotic in the form of ceftriaxone 1 g piggyback every 24 hours, I was asked to see the patient for medical management. 12/05: Patient is doing a lot better today, he denies any fever or chills at this time, he has no abdominal pain, he has his Barrios catheter removed, he is urinating very well, still 120 mL, his urine culture showing gram-negative bacilli, we will continue to follow-up with the patient very closely, patient can be discharged home today, on Ceftin 500 mg orally twice every day for the next 7 days, will check on the culture as an outpatient, patient will follow-up with me as an outpatient 1 week. REVIEW OF SYSTEMS: Constitutional: No documented fever, no chills, no night sweats. No weight change. No weakness, fatigue or lethargy. No daytime sleepiness. EENT: No headache. No blurred vision or double vision, no loss of vision. No loss of Hearing, no ringing in the ears, no dizziness. No nasal drainage or congestion. No epistaxis. No sore throat. Lungs: No shortness of breath, no cough, no sputum production. No wheezing. Reports dyspnea with activity. Cardiovascular: No chest pain, no lower extremity edema. No palpitations. No paroxysmal nocturnal dyspnea. No orthopnea. No lightheadedness or dizziness. No syncopal episodes. Abdominal: Reports abdominal pain. No nausea, vomiting. No diarrhea. No constipation. No bloody or tarry stools reports loss of appetite. Genitourinary: No dysuria, increased frequency, urgency. No urinary retention. Musculoskeletal: No myalgias. No muscle weakness, no gait dysfunction, no frequent falls. No back pain. No neck pain. Integumentary: No wounds, no lesions. No rash or pruritus. No unusual bruising. No change in hair or nails. Neurologic: No aphasia. No facial droop. No change in mentation. No head injury. No headache. No paralysis. No paresthesia. Psychiatric: No depression. No anxiety. No mood swings. Endocrine: No abnormal blood sugars. No weight change. PHYSICAL EXAMINATION: General: 69-year-old male laying down in bed in no apparent distress HEENT: Head is atraumatic, normocephalic, pupils were equal round reactive to light and recommendation, extraocular muscle movement were intact, sclera nonicteric, conjunctivae were pale, mucous membranes of the mouth are somewhat dry. Neck: Supple, no JVP, normal carotid upstroke bilaterally, no lymphadenopathy. Chest: Decreased breath sounds at the bases, few rhonchi, no expiratory wheezes, no chest wall tenderness, no intercostal retractions. Heart: First heart sound is normal, second heart sounds normal systolic ejection murmur 2/6 located left sternal border. Abdomen: Soft, nontender, nondistended, positive bowel sounds. Extremities: There is no edema no calf tenderness DP +2 bilaterally. Neurologic examination: Patient is awake alert and oriented x3 cranial nerves II-12 appear grossly intact, muscle power were 5 out of 5 in upper extremities and 5 out of 5 in bilateral lower extremities, deep tendon reflexes normal bila terally. ASSESSMENT AND PLAN: 1. Complicated urinary tract infection with sepsis post robotic assisted simple prostatectomy. Agree with Ceftin 500 mg twice every day for 7 days. Follow-up on the result of the cultures as an outpatient 2. Hypertension and hypertensive cardiovascular disease. Continue patient on lisinopril 2.5 mg orally once every day monitor the patient blood pressure very closely. 3. Mixed hyperlipidemia. Continue patient on atorvastatin 40 mg once every day, continue Zetia 10 mg once every day. Monitor lipid panel, keep LDL 55-70. 4. Obstructive sleep apnea. Continue patient on CPAP. 5. Enlarged prostate status post robotic assisted simple prostatectomy continue Flomax 0.4 mg once every day. 6. Coronary artery disease of [place] coronary artery continue baby aspirin 81 mg once every day, continue atorvastatin 40 mg once every day, Zetia 10 mg once every day. 7. DVT prophylaxis. Start the patient on Lovenox 40 mg subcutaneously every 24 hours. 8. GI prophylaxis. Continue patient on Protonix 40 mg once every day. 9. Stable for discharge Objective - Vital Signs Vital signs: Vital Signs Temp 98.5 F 12/05/24 08:24 Pulse 72 12/05/24 08:24 Resp 16 12/05/24 08:40 BP 123/75 12/05/24 08:24 Pulse Ox 92 L 12/05/24 01:28 FiO2 Intake & Output 12/04/24 12/05/24 12/05/24 18:59 06:59 18:59 Intake Total 2260 580 Output Total 2100 2600 1600 Balance 160 -2600 -1020 Intake: Oral 2260 580 Output: Urine 2100 2600 1600 Other: Voiding Method Indwelling Catheter Indwelling Catheter Indwelling Catheter # Bowel Movements 1 - Labs CBC & Chem 7: 12/05/24 04:39 12/05/24 04:39 Labs: Abnormal Lab Results - Last 24 Hours (Table) 12/04/24 12/04/24 12/04/24 Range/Units 09:28 11:30 16:49 WBC (4.50-10.00) X 10*3/uL RBC (4.40-5.60) X 10*6/uL Hgb (13.0-17.0) g/dL Hct (39.6-50.0) % BUN 24 H (9-20) mg/dL Glucose 161 H (74-99) mg/dL POC Glucose (mg/dL) 112 H 137 H (70-110) mg/dL Calcium (8.7-10.3) mg/dL AST 60 H (17-59) U/L Total Protein 5.2 L (6.3-8.2) g/dL Albumin 2.8 L (3.5-5.0) g/dL Albumin/Globulin Ratio (1.60-3.17) Ratio 12/04/24 12/05/24 12/05/24 Range/Units 20:17 04:39 04:39 WBC 17.33 H (4.50-10.00) X 10*3/uL RBC 4.03 L (4.40-5.60) X 10*6/uL Hgb 12.0 L (13.0-17.0) g/dL Hct 37.4 L (39.6-50.0) % BUN (9-20) mg/dL Glucose 127 H (74-99) mg/dL POC Glucose (mg/dL) 135 H (70-110) mg/dL Calcium 8.5 L (8.7-10.3) mg/dL AST 55 H (17-59) U/L Total Protein 5.1 L (6.3-8.2) g/dL Albumin 3.1 L (3.5-5.0) g/dL Albumin/Globulin Ratio 1.55 L (1.60-3.17) Ratio 12/05/24 Range/Units 07:01 WBC (4.50-10.00) X 10*3/uL RBC (4.40-5.60) X 10*6/uL Hgb (13.0-17.0) g/dL Hct (39.6-50.0) % BUN (9-20) mg/dL Glucose (74-99) mg/dL POC Glucose (mg/dL) 133 H (70-110) mg/dL Calcium (8.7-10.3) mg/dL AST (17-59) U/L Total Protein (6.3-8.2) g/dL Albumin (3.5-5.0) g/dL Albumin/Globulin Ratio (1.60-3.17) Ratio Microbiology - Last 24 Hours (Table) 12/03/24 12:40 Blood Culture - Preliminary Blood 12/03/24 13:25 Urine Culture - Preliminary Urine,Voided Gram Neg Bacilli
--- NOTE | 2024-12-05 16:44 | P.DS ---
Providers Date of admission: 12/03/24 16:02 Attending physician: Fabian Wilkinson Consults: 12/03/24 15:15 Consult Physician Urgent Consulting Provider: Mode Cheney Consult Reason/Comments: Urinary tract infection s/p TURP Do you want consulting provider notified?: Yes Primary care physician: Mode Cheney Hospital Course: This is a 70-year-old male that underwent recent robotic simple prostatectomy. Patient was admitted to the hospital for UTI and fevers. Patient was started on IV ceftriaxone, and remained afebrile for 48 hours after starting the IV antibiotics. His Barrios catheter was removed on December 05, he was able to void with low residual. Patient was discharged home on 7-day course of Ceftin. At time of discharge he was tolerating a diet, ambulating, and pain was controlled Plan - Discharge Summary Discharge Rx Participant: Yes New Discharge Prescriptions: New cefuroxime axetiL [Ceftin] 500 mg PO BID #14 tab cefuroxime axetiL [Ceftin] 500 mg PO BID 14 Days tab No Action lisinopriL [Zestril] 2.5 mg PO DAILY Ezetimibe [Zetia] 10 mg PO DAILY Atorvastatin [Lipitor] 80 mg PO HS Tamsulosin HCl [Flomax] 0.4 mg PO Dapagliflozin Propanediol [Farxiga] 10 mg PO DAILY Cephalexin [Keflex] 500 mg PO Q8HR #15 cap Discharge Medication List Atorvastatin [Lipitor] 80 mg PO HS 09/23/23 [History] Dapagliflozin Propanediol [Farxiga] 10 mg PO DAILY 09/23/23 [History] Ezetimibe [Zetia] 10 mg PO DAILY 09/23/23 [History] lisinopriL [Zestril] 2.5 mg PO DAILY 09/23/23 [History] Cephalexin [Keflex] 500 mg PO Q8HR #15 cap 11/23/24 [Rx] Tamsulosin HCl [Flomax] 0.4 mg PO 12/03/24 [History] cefuroxime axetiL [Ceftin] 500 mg PO BID #14 tab 12/05/24 [Rx] cefuroxime axetiL [Ceftin] 500 mg PO BID 14 Days tab 12/05/24 [Rx] Follow up Appointment(s)/Referral(s): Mode Cheney MD [Primary Care Provider] - 12/08/24 10:30 am (appt with Sharmila PIERRE) Oren Jenkins MD [STAFF PHYSICIAN] - 12/11/24 9:20 am Patient Instructions/Handouts: Cefuroxime (By mouth), Urinary Tract Infection in Older Adults (DC) Discharge Disposition: HOME SELF-CARE
--- NOTE | 2024-12-08 13:53 | CDI ---
Documentation Clarification Form Date: 12/08/2024 From: Hany Goldsmith Admit Date: 12/03/2024 04:02:00 PM Patient Name: Garcia Marroquin Visit Number: [id number] Discharge Date: 12/05/2024 01:45:00 PM ATTENTION: The Clinical Documentation Specialists (CDI) and [facility] Coding Staff appreciate your assistance in clarifying documentation. Please respond to the clarification below the line at the bottom and electronically sign. The CDI & [facility] Coding staff will review the response and follow-up if needed. Please note: Queries are made part of the Legal Health Record. If you have any questions, please contact the author of this message via ITS. Dr. Alice MD., Complicated urinary tract infection is documented 12/04, Medical consult and patient had a Barrios catheter upon arrival. Additional clarification regarding the etiology of the Complicated urinary tract infection is requested. History/Risk Factors 69-year-old male with a previous medical history significant for hypertension and hypertensive cardiovascular disease, mixed hyperlipidemia, diabetes mellitus type 2, BPH, underwent on November 23 robotic assisted simple prostatectomy. Clinical Indicators: 12/04 Medical Consult: Complicated urinary tract infection with sepsis post robotic assisted simple prostatectomyhe was evaluated in the emergency department at [facility] he was found to have a significant leukocytosis, with a significant urinary tract infection 12/05 Discharge Summary: Patient was admitted to the hospital for UTI and fevers. Patient was started on IV ceftriaxone and remained afebrile for 48 hours after starting the IV antibiotics. His Barrios catheter was removed on December 05, he was able to void with low residual. Patient was discharged home on 7-day course of Ceftin 12/[address] Wilkinson: Please clarify the etiology of the UTI, if known: Unable to determine 12/03 Urinalysis: Light yellow, cloudy, ph 6.0, Specific gravity 1.022, protein 2+, Glucose 4+ Ketones 1+ Blood Moderate, Leukocyte Esterase Moerate H, RBC >182 Wbc 96, bacteria rare mucus occasional 12/03 Urine culture: Gram Neg Bacilli Lab results per EMR: 12/03: Wbc 21.90, Neutrophils 19.14, Treatment: 12/03 Ceftriaxone IVPB x 1; 12/03 Rocephin IVP x 1; 12/04 Ceftriaxone IVPB Q24H, Fluids: 12/03 12/04 0.9ns 100cchr; 12/03 Lactated Ringers IV 100cc/hr, Barrios Catheter removed 12/05. Please clarify the etiology of the Complicated urinary tract infection: [ X ] Complicated urinary tract infection related to Barrios catheter, Present on admission [ ] Complicated urinary tract infection not related to Barrios catheter [ ] Other explanation of findings, please specify MTDD
== END 2024-12-05 13:45 | disposition home or self-care (01) | DRG 698 ==
LOC: EC 11:25 → 5NMEDONC 16:02
PROVIDERS: ADMIT Urology; ATTEND Urology
DX: T83.511A Infection and inflammatory reaction due to indwelling urethral catheter, initial encounter (principal); A41.9 Sepsis, unspecified organism; E11.9 Type 2 diabetes mellitus without complications; I10 Essential (primary) hypertension; N99.89 Other postprocedural complications and disorders of genitourinary system; N39.0 Urinary tract infection, site not specified; Z11.52 Encounter for screening for COVID-19; E78.2 Mixed hyperlipidemia; G47.33 Obstructive sleep apnea (adult) (pediatric); N40.0 Benign prostatic hyperplasia without lower urinary tract symptoms; G47.30 Sleep apnea, unspecified; I25.10 Atherosclerotic heart disease of native coronary artery without angina pectoris; Z79.82 Long term (current) use of aspirin; Z79.84 Long term (current) use of oral hypoglycemic drugs; Z79.899 Other long term (current) drug therapy; Z82.49 Family history of ischemic heart disease and other diseases of the circulatory system; Z90.79 Acquired absence of other genital organ(s); Y84.6 Urinary catheterization as the cause of abnormal reaction of the patient, or of later complication, without mention of misadventure at the time of the procedure
CPT/HCPCS: 36415; 71046; 80053; 81001; 83605; 85025; 85610; 85730; 87040; 87077; 87086; 87186; 87636; 93005; 96361; 96365; 96375; 99291

== ENCOUNTER 2024-12-10 08:29 | Emergency (ER) | payer MEDICARE ==
[2024-12-10 08:43] VITALS: RESP 18; TEMP 98.5
--- NOTE | 2024-12-10 09:08 | ED ---
General Adult HPI - General Chief complaint: Extremity Problem,Nontraumatic Stated complaint: Right Leg Pain Time Seen by Provider: 12/10/24 08:44 Source: patient, family, RN notes reviewed Mode of arrival: ambulatory Limitations: no limitations - History of Present Illness Initial comments: 69-year-old male presenting to the emergency department for complaints of right calf pain that started yesterday morning. He states that the pain has mildly worsened over the course of the day and is worse with ambulation and with dorsiflexion of the foot and is concerned that he may have a blood clot. He is unaware if there is swelling of the leg. He denies redness, history of DVT or PE, difficulty breathing, chest pain, heart palpitations. States that he has been ambulating after his procedure. He reports that his urinary symptoms have almost completely resolved as he started a new antibiotic for his UTI. Endorses mild hematuria however denies dysuria, fevers, chills, abdominal pain or suprapubic tenderness. Denies blood thinner use. - Related Data Home Medications Medication Instructions Recorded Confirmed Atorvastatin [Lipitor] 80 mg PO HS 09/23/23 12/03/24 Dapagliflozin Propanediol [Farxiga] 10 mg PO DAILY 09/23/23 12/03/24 Ezetimibe [Zetia] 10 mg PO DAILY 09/23/23 12/03/24 lisinopriL [Zestril] 2.5 mg PO DAILY 09/23/23 12/03/24 Tamsulosin HCl [Flomax] 0.4 mg PO 12/03/24 Previous Rx's Medication Instructions Recorded Cephalexin [Keflex] 500 mg PO Q8HR #15 cap 11/23/24 cefuroxime axetiL [Ceftin] 500 mg PO BID #14 tab 12/05/24 cefuroxime axetiL [Ceftin] 500 mg PO BID 14 Days tab 12/05/24 Allergies Allergy/AdvReac Type Severity Reaction Status Date / Time No Known Allergies Allergy Verified 12/10/24 08:40 Review of Systems ROS Statement: Those systems with pertinent positive or pertinent negative responses have been documented in the HPI. ROS Other: All systems not noted in ROS Statement are negative. Past Medical History Past Medical History: Diabetes Mellitus, Hyperlipidemia, Prostate Disorder, Sleep Apnea/CPAP/BIPAP Additional Past Medical History / Comment(s): Type II NIDDM. Uses CPAP History of Any Multi-Drug Resistant Organisms: None Reported Past Surgical History: Prostate Surgery Additional Past Surgical History / Comment(s): Colonoscopy Past Anesthesia/Blood Transfusion Reactions: No Reported Reaction Additional Past Anesthesia/Blood Transfusion Reaction / Comment(s): No hx of blood transfusion to date. Past Psychological History: No Psychological Hx Reported Smoking Status: Never smoker Past Alcohol Use History: None Reported Past Drug Use History: None Reported - Past Family History Father Family Medical History: No Reported History General Exam Limitations: no limitations Respiratory exam: Present: normal lung sounds bilaterally. Absent: respiratory distress, wheezes, rales, rhonchi, stridor Cardiovascular Exam: Present: regular rate, normal rhythm, normal heart sounds. Absent: systolic murmur, diastolic murmur, rubs, gallop, clicks GI/Abdominal exam: Present: soft, normal bowel sounds. Absent: distended, tenderness, guarding, rebound, rigid Right Lower Leg exam: Present: tenderness, Homans' sign. Absent: swelling, deformity, erythema, palpable cord Neurovascular tendon exam: Present: no vascular compromise Back exam: Present: normal inspection Course Vital Signs 12/10/24 12/10/24 08:40 10:58 Temperature 98.5 F Pulse Rate 85 78 Respiratory 18 18 Rate Blood Pressure 109/69 117/74 O2 Sat by Pulse 95 96 Oximetry Medical Decision Making - Medical Decision Making Was pt. sent in by a medical professional or institution (ALISIA Babcock, SEATING CAPTAIN, urgent care, hospital, or [place] health care facility...) When possible be specific @ -No Did you speak to anyone other than the patient for history (EMS, parent, family, police, friend...)? What history was obtained from this source @ -No Did you review nursing and triage notes (agree or disagree)? Why? @ -I reviewed and agree with nursing and triage notes Were old charts reviewed (outside hosp., previous admission, EMS record, old EKG, old radiological studies, urgent care reports/EKG's, [place] health care facility records)? Report findings @ -No old charts were reviewed Differential Diagnosis (chest pain, altered mental status, abdominal pain women, abdominal pain men, vaginal bleeding, weakness, fever, dyspnea, syncope, headache, dizziness, GI bleed, back pain, seizure, CVA, palpatations, mental health, musculoskeletal)? @ -Superficial thrombophlebitis, DVT, venous insufficiency, peripheral arterial disease, cellulitis, muscle strain, this list is not all inclusive EKG interpreted by me (3pts min.). @ -None X-rays interpreted by me (1pt min.). @ -None done CT interpreted by me (1pt min.). @ -None done U/S interpreted by me (1pt. min.). @ -Duplex ultrasound of the right lower extremity reveals no evidence of DVT. What testing was considered but not performed or refused? (CT, X-rays, U/S, labs)? Why? @ -None What meds were considered but not given or refused? Why? @ -None Did you discuss the management of the patient with other professionals (professionals i.e. , PA, SEATING CAPTAIN, lab, RT, psych nurse, manager social work, ear nose throat surgeon, teacher, eeo officer, showcase trimmer)? Give summary @ -No Was smoking cessation discussed for >3mins.? @ -No Was critical care preformed (if so, how long)? @ -No Were there social determinants of health that impacted care today? How? (Homelessness, low income, unemployed, alcoholism, drug addiction, transportation, low edu. Level, literacy, decrease access to med. care, penitentiary, rehab)? @ -No Was there de-escalation of care discussed even if they declined (Discuss DNR or withdrawal of care, Hospice)? DNR status @ -No What co-morbidities impacted this encounter? (DM, HTN, Smoking, COPD, CAD, Cancer, CVA, ARF, Chemo, Hep., AIDS, mental health diagnosis, sleep apnea, morbid obesity)? @ -None Was patient admitted / discharged? Hospital course, mention meds given and route, prescriptions, significant lab abnormalities, going to OR and other pertinent info. @ -Discharge. 69-year-old male presenting to the ER with complaints of right calf/leg pain. Patient is a positive Homans' sign. No palpable cord. Pedal pulses 2+. Patient was offered pain medication and was declined. Ultrasound imaging is unremarkable. Patient discharged in stable condition. Case discussed with my attending Dr. Bailey. Undiagnosed new problem with uncertain prognosis? @ -No Drug Therapy requiring intensive monitoring for toxicity (Heparin, Nitro, Insulin, Cardizem)? @ -No Were any procedures done? @ -No Diagnosis/symptom? @ -leg pain Acute, or Chronic, or Acute on Chronic? @ -Acute Uncomplicated (without systemic symptoms) or Complicated (systemic symptoms)? @ -Uncomplicated Side effects of treatment? @ -No Exacerbation, Progression, or Severe Exacerbation? @ -No Poses a threat to life or bodily function? How? (Chest pain, [place], [place], pneumonia, PE, COPD, DKA, ARF, appy, cholecystitis, CVA, Diverticulitis, Homicidal, Suicidal, threat to staff... and all critical care pts) @ -No Disposition Clinical Impression: Right leg pain Disposition: HOME SELF-CARE Condition: Stable Instructions (If sedation given, give patient instructions): Leg Pain (ED) Additional Instructions: Please return to the Emergency Department if symptoms worsen or any other concerns. Is patient prescribed a controlled substance at d/c from ED?: No Referrals: Mode Cheney MD [Primary Care Provider] - 1-2 days Time of Disposition: 10:47
--- NOTE | 2024-12-10 10:31 | US ---
EXAMINATION TYPE: US venous doppler duplex LE RT DATE OF EXAM: 12/10/2024 10:19 AM COMPARISON: NONE CLINICAL INDICATION: Male, 69 years old with history of pain in posterior calf worse w/ dorsiflexion; Right calf pain TECHNIQUE: The lower extremity deep venous system is examined utilizing real time linear array sonog boris with graded compression, doppler sonography and color-flow sonography. Grayscale, color doppler , spectral doppler imaging performed of the deep veins of the lower extremities FINDINGS: SIDE PERFORMED: Right VESSELS IMAGED: Common Femoral Vein Deep Femoral Vein Greater Saphenous Vein * Femoral Vein Popliteal Vein Small Saphenous Vein * Proximal Calf Veins (* superficial vessels) Right Leg: Negative for DVT; There is normal flow, compressibility, vascular waveforms. IMPRESSION: No evidence for deep vein thrombosis of the right lower extremity. [facility], , 12/10/2024 10:29 AM
[2024-12-10 10:59] VITALS: BP 117/74; PULSE 78
== END 2024-12-10 11:00 | disposition home or self-care (01) ==
LOC: EC 08:29
DX: M79.604 Pain in right leg (principal)
CPT/HCPCS: 99283